=== PATIENT | female | born 1975 | race African-American/Black ===

== ENCOUNTER 2022-12-25 19:00 | Outpatient (REF) | payer OTHER, SELFPAY ==
[2022-12-25 20:12] LABS: ALT 35 U/L (14-59); AST 17 U/L (15-37); Albumin 3.6 g/dL (3.4-5.0); Alkaline Phosphatase 103 U/L (46-116); Anion Gap 8.1 mmol/L (3-11); BUN 9 mg/dL (7-18); Bilirubin, Total 0.3 mg/dL (0.2-1.0); CO2 27.9 mmol/L (21.0-32.0); CREATININE 0.9 mg/dL (0.55-1.02); Calcium 8.8 mg/dL (8.5-10.1); Calculated LDL 54 mg/dL (<100); Chloride 104 mmol/L (98-107); Cholesterol 128 mg/dL (<200); Estimated GFR 79.35 (mL/min/1.73m2); Glucose 216 mg/dL (74-106); HDL Cholesterol 39 mg/dL (40-60); Sodium 140 mmol/L (136-145); Total Protein 7.4 g/dL (6.4-8.2); Triglyceride 179 mg/dL (<150)
== END 2022-12-25 19:01 | disposition home or self-care (01) ==
LOC: NCHCN 19:00
PROVIDERS: Visit Provider Nurse Practitioner Family
DX: R73.03 Prediabetes (principal); I10 Essential (primary) hypertension; E78.5 Hyperlipidemia, unspecified
CPT/HCPCS: 80053; 80061; 83036

== ENCOUNTER → 2023-09-17 02:59 | Outpatient (CLI) | payer OTHER, SELFPAY ==
--- NOTE | 2023-09-17 | DI.MRI_ITS ---
Exam(s) MR LOWER JOINT LT WO EXAM: MR LOWER JOINT LT WO CLINICAL HISTORY: LT HIP PAIN, M25.552,NO IMPROVEMENT WITH PT TECHNIQUE: Multiplanar multisequence MRI of the hip was performed. COMPARISON: No exams were available for comparison FINDINGS: MARROW/JOINTS:There is no evidence of fracture, bone contusion, nor avascular necrosis. There are no significant osseous lesions. Main finding here is advanced osteoarthritic degenerative change of the left hip with full-thickness cartilage loss salt again qjki-mw-idxd appearance and prominent femoral head marginal osteophytes. Th ere is a small hip joint effusion and there are intra-articular bodies evident. These are most eviden t inferiorly. LABRUM: The majority of the labrum appears truncated and irregular in appearance consistent with cullet crusher vanessa diffuse degenerative tearing. There is no paralabral cyst. BURSAE: There is no evidence of trochanteric bursitis. There is no evidence of iliopsoas bursitis. TENDONS: No evidence of tendinitis nor tendon tears. ISCHIAL TUBEROSITY/HAMSTRING: There is no abnormal intraosseous signal in the ipsilateral ischial tub erosity nor tear of the common hamstrings tendon attachment site at this level. OTHER: No evidence of signal abnormality within the surrounding muscles. No abnormal extra-articular fluid collections. IMPRESSION: 1. There is advanced osteoarthritic degenerative change in the left hip as described above and there are also a few loose bodies within a small left hip joint effusion. 2. Multilevel degenerative ipsilateral labral tearing is evident. 3. No evidence of stress fracture, avascular necrosis, nor significant osseous lesions. DATA REPOSITORY:
--- NOTE | 2023-09-17 18:55 | DI.VRAD_ITS ---
PROCEDURE INFORMATION: Exam: MR Left Lower Extremity Joint Without Contrast; Hip Exam date and time: 09/17/2023 1:58 PM Age: 47 years old Clinical indication: Pain; Hip; Bilateral TECHNIQUE: Imaging protocol: Magnetic resonance imaging of the left lower extremity joint without contrast. Exam focused on the hip. COMPARISON: No relevant prior studies available. FINDINGS: Bones/joints: Asymmetrical, moderate to advanced osteoarthritic changes within the left hip with large areas of full-thickness cartilage loss, marginal and ring osteophytes, and a fory-ml-jngq appearance. Numerous small intra-articular bodies are seen within a small left hip effusion, with possible areas of superimposed synovitis. No evidence for acute fracture. However, slight flattening of the left femoral head is seen which could represent sequela of a prior subcortical fracture or osteonecrosis within the left femoral head. A large anterior and lateral acetabular osteophyte is seen which covers the femoral head, and is fragmented laterally. Zunx-hk-vynuerjx osteoarthritic changes within the right hip. Labrum: The labrum is diffusely truncated and irregular in appearance consistent with chronic, diffuse degenerative labral tearing and fraying. No paralabral cyst. TENDONS: Tendons of iliopsoas group: No acute tear or rupture. Tendons of medial compartment of thigh: No acute tear or rupture. Tendons of lateral rotators of hip: No acute tear or rupture. Tendons of gluteal group: No acute tear or rupture. Soft tissues: No focal fluid collection or hematoma within the overlying soft tissues. IMPRESSION: 1. Asymmetrical moderate to advanced osteoarthritis within the left hip, with significant cartilage loss, osteophytes and a zgqi-uu-fxte appearance. Small left hip effusion with multiple small intra-articular bodies and possible synovitis. This may represent sequela of a prior injury or could represent sequela of prior osteonecrosis/AVN within the left femoral head. An inflammatory or crystalline arthropathy is less favored. 2. Zkgr-cs-qhznsizq osteoarthritic changes within the right hip. Dictated and Authenticated by: Cheri Comer MD. Ordering:DORI Sheppard MD
== END ==
PROVIDERS: PCP Nurse Practitioner Family; Visit Provider Nurse Practitioner Family
DX: M16.12 Unilateral primary osteoarthritis, left hip (principal)
CPT/HCPCS: 73721

== ENCOUNTER 2023-09-23 10:01 | Day surgery (SDC) | payer OTHER, SELFPAY ==
[2023-09-23 10:35] VITALS: BP 137/99; PULSE 94; RESP 18; TEMP 36.3; O2SAT 96
[2023-09-23] MEDS: Lactated Ringers 1,000 ML 80 ML IV (10:54)
--- NOTE | 2023-09-23 11:02 | W.ANESPRE ---
General Info Date of Service Date Performed: 09/23/23 Height: 5 ft 5 in Weight: 100 kg Body Mass Index (BMI): 36.6 Surgical Procedure: Operation Date: 09/23/23 12:20 Proposed Procedure Side Surgeon p Sherrie Mixon MD Meds Allergies and Home Medications Allergies Allergy/AdvReac Type Severity Reaction Status Date / Time oxycodone [From Percocet] AdvReac Unknown Verified 09/23/23 10:47 Home Medication Medication Instructions Recorded estradiol 0.045 mg-levonorgestrel 1 patch transdermal QWEEK 07/16/23 0.015 mg/24hr weekly transderm patch (Climara Pro) metoprolol succinate 100 mg 100 mg PO DAILY 07/16/23 tablet,extended release 24 hr pantoprazole 40 mg tablet,delayed 40 mg PO DAILY 07/16/23 release rosuvastatin 10 mg tablet 10 mg PO DAILY 07/16/23 bisacodyl 5 mg tablet,delayed 5 mg PO ONCE Colonoscopy Bowel 08/18/23 release (Dulcolax (bisacodyl)) Prep #4 tabs hydrochlorothiazide 25 mg tablet 50 mg PO DAILY 08/18/23 ketoconazole 2 % shampoo 1 applic topical ONCE PRN 08/18/23 polyethylene glycol 3350 17 238 g PO ONCE Colonoscopy Bowel 08/18/23 gram/dose oral powder Prep #238 grams semaglutide 0.25 mg or 0.5 mg (2 1 mg subcut QWEEK 08/18/23 mg/3 mL) subcutaneous pen injector (Ozempic) Current Visit Medications: Current Medications Generic Name Dose Route Start Last Admin Trade Name Corona PRN Reason Stop Dose Admin Ringer's Solution 1,000 mls @ 80 mls/hr 09/23/23 06:00 09/23/23 10:54 IV 10/22/23 23:59 80 mls/hr INFUSION DAWSON Administration IV Miscellaneous Supplies 1 each 09/23/23 06:00 Iv Access IV 10/22/23 23:59 DIRECTED DAWSON Sodium Chloride 0 ml 09/23/23 06:00 Normal Saline Flush 10 Ml Syr IV 10/22/23 23:59 PRN PRN Sodium Chloride 0 ml 09/23/23 06:00 Normal Saline 10 Ml Vial IJ 10/22/23 23:59 DIRECTED PRN Sterile Water 0 ml 09/23/23 06:00 Water,Injection,Sterile 10 Ml Vial IJ 10/22/23 23:59 DIRECTED PRN PFS Active Problems Active Problems: Problem Status Onset Code Obesity E66.9 Hypertension I10 Prediabetes R73.03 Medical History Medical History Diabetes Arthritis Hyperlipidemia GERD (gastroesophageal reflux disease) History of frequent urinary tract infections Hirsutism Bilateral sciatica Family history of colon cancer in mother Surgical History Surgical History History of hysterectomy Tobacco Smoking/Tobacco Use Status: Never Alcohol Alcohol Intake: never Substance Use Substance use type: does not use Vital Signs and Lab Results Vital Signs Most Recent Vital Signs in EMR: Most Recent Vital Signs Temp Pulse Resp BP Pulse Ox 36.3 C L 94 H 18 137/99 H 96 09/23/23 10:35 09/23/23 10:35 09/23/23 10:35 09/23/23 10:35 09/23/23 10:35 Point of Care Results Point of Care Results: Finger Stick Blood Glucose 151 09/23/23 10:53 Lab Results Blood Type / Crossmatch: No Data to Display Complete Blood Count: No Data to Display Complete Metabolic Panel: No Data to Display Liver Function Panel: No Data to Display Coagulation Panel: No Data to Display Cardiac Panel: No Data to Display Arterial Blood Gas: No Data to Display Venous Blood Gas: No Data to Display Pancreas Panel: No Data to Display Thyroid Panel: No Data to Display Infectious Disease: No Data to Display Blood Cultures: No Data to Display Toxicology Panel: No Data to Display Panel: No Data to Display Anesthesia Assessment and Plan Anesthesia History Personal History: No History of Anesthesia Complications Family History: Family History Unknown Exercise Tolerance Exercise Tolerance: Metabolic Equivalents>4 Pertinent Negatives Pertinent Negatives: No Symptoms of GERD, No Major Cardiovascular Symptoms or Complaints and No Major Pulmonary Symptoms or Complaints Cardiac & Pulmonary Exam Cardiac Exam: Normal S1/S2 Heart Sounds Pulmonary Exam: Clear Bilateral Breath Sounds Implantable Cardiac Device Does patient have a Pacemaker or an ICD?: No Airway Exam Known Difficult Airway: No Mallampati Class: 1 Mouth Opening: Normal (> 3cm) Thyromental Distance: Greater than 3 cm Neck Range of Motion: Full ROM Neck Circumference: Normal Teeth Condition: Normal Dentition ASA Classification ASA Score: ASA 2 Emergency Case?: No NPO Status NPO Status: NPO Clears >2 hours, Solids >8 hours Status Status: History of Hysterectomy Anesthesia Plan Resuscitation Status: Full Code Anesthesia Technique: General Anesthesia Airway Planned: Natural Airway Monitors Used: Standard Monitors Preoperative Comments:: Reports Ozempic dose >14/days prior.
[2023-09-23 11:05] VITALS: BMI 36.6
--- NOTE | 2023-09-23 11:48 | BOWEL_PTH ---
PATIENT: Radha Cruz LOC: [facility] U#:[id number] AGE/SX: 47/F ROOM: RE09/23/[address]: Serafin Mixon : 1975 BED: DIS: 09/23/2023 SPEC #: [id number] RECD: 09/23/23 12:54 STATUS: NAUN REQ #: [id number] KRISTYN: 09/23/23 11:[address]: Serafin Mixon DEPT: Surgical Specimen RECD BY: Danielle Orourke ENTERED: 09/23/23 12:54 SP TYPE: Bowel OTHR DR: JEREMY WANG Tissues: 1 - BIOPSY BOWEL 2 - BIOPSY BOWEL 3 - BIOPSY BOWEL Procedures: GROSS AND MICRO LEVEL 4 Comments: [id number]
[2023-09-23 12:03] VITALS: BP 119/92; PULSE 89; RESP 18; TEMP 36.1; O2SAT 96
--- NOTE | 2023-09-23 12:06 | COLE_ITS ---
Date of service: 09/23/23 Time of Service: 12:06 Colonoscopy Report Procedure Description: PROCEDURES PERFORMED: 1. Colonoscopy with hot snare polypectomy x2 2. Cold forceps biopsy PREOPERATIVE DIAGNOSIS: Surveillance colonoscopy POSTOPERATIVE DIAGNOSIS: Colon polyps, lipoma, mild diverticulosis SURGEON: León Mixon MD INDICATION for procedure: The patient is a 47-year-old woman with a family history of colon cancer in her mother. Her prior colonoscopy was reportedly normal. FINDINGS: The terminal ileum was normal. In the ascending colon a 5-7 mm sessile polyp was removed with hot snare technique. Further along in the transverse colon a 3-5 mm sessile polyp was removed with hot snare technique. In the descending colon/sigmoid colon at about 40 cm is a moderate?sized lipoma(clinically). This does not appear to be a polyp and appears to be submucosal. It encompasses about one third of the colon wall. I took full- thickness biopsies of it with a cold forceps in hopes to prove benign tissue. My only concern looking at it is the possibility that it could create an obstructive, ball?valve effect if it continues to grow. If she were to ever have bloating or abdominal discomfort, this is a possible disease entity to consider. Again, it appears completely benign. Minimal/mild diverticular changes are present in the sigmoid colon. SURVEILLANCE interval/FOLLOW-UP: 3 years because of the family history and the findings today. SPECIMENS: yes EBL: Minimal COMPLICATIONS: None QUALITY of prep: Excellent Procedure in detail: The patient gave written consent and was in agreement with the indications, the potential risks as well as the benefits of the procedure. They taken to the endoscopy suite and laid in the left lateral decubitus position. A timeout was performed and anesthesia was administered which was tolerated well. I started the procedure. Digital rectal and visual examination was performed and grossly within normal limits. A well-lubricated flexible colonoscope was then introduced and passed without any notable difficulty all the way to the cecum identified by the ileocecal valve and the appendiceal orifice. The terminal ileum was intubated and looked normal. The scope was then slowly withdrawn with the above-noted findings. The patient tolerated the procedure well and was taken to the PACU in hemodynamically stable condition.
--- NOTE | 2023-09-23 12:09 | W.PM.DSUDISC ---
Date of service: 09/23/23 Time of Service: 12:09 Discharge Plan Disposition Patient Disposition: Home Condition: Good Discharge Details Attending Provider: Serafin Mixon Primary Care Provider: Laurie Banks Home Meds and New Rx's Prescriptions: No Action bisacodyl [Dulcolax (bisacodyl)] 5 mg tablet,delayed release (DR/EC) 5 mg PO ONCE Qty: 4 0RF Rx Instructions: Colonoscopy Bowel Prep- Per Instructions polyethylene glycol 3350 17 gram/dose powder 238 g PO ONCE Qty: 238 0RF Rx Instructions: Colonoscopy Bowel Prep- Per Instructions metoprolol succinate 100 mg tablet extended release 24 hr 100 mg PO DAILY Climara Pro 0.045-0.015 mg/24 hr patch weekly 1 patch transdermal QWEEK rosuvastatin 10 mg tablet 10 mg PO DAILY pantoprazole 40 mg tablet,delayed release (DR/EC) 40 mg PO DAILY hydrochlorothiazide 25 mg tablet 50 mg PO DAILY ketoconazole 2 % shampoo 1 applic topical ONCE PRN Ozempic 0.25 mg or 0.5 mg (2 mg/3 mL) pen injector 1 mg subcut QWEEK Discharge Instructions Additional Instructions: FINDINGS: Some polyps were found today and removed. This is why we do the colonoscopies. This is nothing to worry about. Because of your mother history, you should do another colonoscopy in 3 years. Separately, a lipoma was found in your colon. This is a benign problem, but it is somewhat large. If you were to ever develop abdominal pain or bloating or inability to go to the bathroom, in theory this needs to be considered. That will probably not happen. At your next colonoscopy, in 3 years, it can be assessed whether or not this is continuing to grow or just staying the same size. Activity:: Activity as Tolerated Diet:: As Tolerated
[2023-09-23 12:30] VITALS: BP 123/94; PULSE 84; RESP 18; TEMP 36.1; O2SAT 100
--- NOTE | 2023-09-23 13:06 | W.ANESPOSTOP ---
Postoperative Evaluation Date, Time and Location Date Performed: 09/23/23 Time Performed: 13:06 Patient Location: Day Surgery Unit Vital Signs Most Recent Imported Vital Signs: Most Recent Vital Signs Temp Pulse Resp BP Pulse Ox 36.1 C L 84 18 123/94 H 100 09/23/23 12:30 09/23/23 12:30 09/23/23 12:30 09/23/23 12:30 09/23/23 12:30 Pain Score Most Recent Pain Score: Most Recent Pain Score Pain Level 0 09/23/23 12:30 Assessment Mental Status: Awake (Alert & Oriented to Patient Baseline) Airway and Respiratory Function: Patent airway with normal (patient baseline) respiratory exam Cardiovascular Function: Hemodynamically Stable Hydration Status: Adequately Hydrated Nausea & Vomiting: No Nausea or Vomiting Pain: Pt. Denies Any Pain Peripheral Nerve Block: Patient did not receive a nerve block
== END 2023-09-23 13:11 | disposition home or self-care (01) ==
PROVIDERS: PCP Nurse Practitioner Family; Visit Provider Student in an Organized Health Care Education/Training Program
PROC: 0DJD8ZZ Inspection of Lower Intestinal Tract, Via Natural or Artificial Opening Endoscopic (ICD-10-PCS; CPT 45378; principal; 2023-09-23 12:15)
DX: Z12.11 Encounter for screening for malignant neoplasm of colon (principal); D12.2 Benign neoplasm of ascending colon; K57.30 Diverticulosis of large intestine without perforation or abscess without bleeding; D17.39 Benign lipomatous neoplasm of skin and subcutaneous tissue of other sites; Z80.0 Family history of malignant neoplasm of digestive organs; I10 Essential (primary) hypertension; D12.3 Benign neoplasm of transverse colon; D12.5 Benign neoplasm of sigmoid colon
CPT/HCPCS: 45385; 123; 88305; 00123; J2001; J2704

== ENCOUNTER 2023-12-25 03:21 | Outpatient (CLI) | payer OTHER, SELFPAY ==
--- NOTE | 2023-12-25 10:57 | W.NUTRFU ---
Date of service: 12/25/23 Time of Service: 10:00 Nutrition Note NOTE: Per Radha's initial request, this appointment was completed via phone call. I did send Radha an email with my contact info in it should she have any need for continued appts, resources or assistance with meal planning after this appointment. The referral was received almost a year ago but was lost due to change of staff and unaware until recently of a referral process change. Radha referred for Diabetes education with a diagnosis of DMII with hyperglycemia. Medical history also includes hx of total hysterectomy, HTN, Sciatica, Hirsutism, Frequent UTI's, Obesity with current BMI 39, GERD, HLD, and arthritis (pt complains of hip pain lately). She works remotely at home, which she agrees can be a mixed blessing in regards to her nutrittion goals. Current empty-guera with just at home for meals. No scheduled exercise at this time. She tends to have just 2 meals per day currently after starting ozempic and feeling less appetite/earlier satiety. follows pescatarian diet and eats eggs and some dairy - mostly cheese. Diet recall over phone tends to be low in fiber, high in added sugar (drinks soda, ice tea, lemonade) and 2 meals per day makes it difficult to plan to meet all her nutrition needs - takes no vitamin supplements currently. A1c was 8.0% in december 2022. Estimated energy needs: 2200kcals (REEx1.3AF) - suggested ~5690-4463 for steady wt loss. Suggested ~40%kcals from carbs at 150-180grams or max of 12 carb servings for the day. 90-135g protein (20-30% of recommended kcals) REviewed goals to limit added sugar to <40g per day and easiest way is to address sweetened beverages. Encouraged scheduled activity and highlighted strength training. Encouraged looking at sleep quality and stress mgt as components to her success with wt mgt and glucose mgt. Encouraged MVI with iron and iodine in it and 4,000IU vitamin D for a month and then consistently take 2,000IU per day.Encouraged to work up to consistently get 30g fiber daily. we discussed how to do these things with with meal planning for somewhat consistent meals and trying to get on autopilot to reduce stress about meal planning variety. pt has my conact info should she have furhter needs or questions. Time Spent in Nutritional Counseling and Treatment: 30 minutes
== END 2023-12-25 03:22 | disposition home or self-care (01) ==
LOC: DS 03:21
PROVIDERS: PCP Nurse Practitioner Family; Visit Provider Dietitian, Registered
DX: E11.65 Type 2 diabetes mellitus with hyperglycemia (principal)
CPT/HCPCS: 00123; 97802

== ENCOUNTER 2023-12-30 16:18 | Outpatient (REF) | payer OTHER, SELFPAY ==
[2023-12-30 20:06] LABS: ALT 33 U/L (14-59); AST 14 U/L (15-37); Albumin 3.8 g/dL (3.4-5.0); Alkaline Phosphatase 95 U/L (46-116); Anion Gap 8.6 mmol/L (3-11); BUN 11 mg/dL (7-18); Bilirubin, Total 0.5 mg/dL (0.2-1.0); CO2 30.4 mmol/L (21.0-32.0); CREATININE 0.8 mg/dL (0.55-1.02); Calcium 9.1 mg/dL (8.5-10.1); Chloride 105 mmol/L (98-107); Estimated GFR 90.83 (mL/min/1.73m2); Glucose 94 mg/dL (74-106); Potassium 3.8 mmol/L (3.5-5.1); Sodium 144 mmol/L (136-145); TSH (W/Ref FT4) 1.92 uIU/mL (0.36-3.74); Total Protein 7.2 g/dL (6.4-8.2)
[2023-12-30 20:11] LABS: Hemoglobin A1C 6.6 % (<5.7)
[2023-12-31 19:17] LABS: Vitamin D 25 Total 25.5 ng/mL (30-100)
== END 2023-12-30 16:19 | disposition home or self-care (01) ==
LOC: NCHCN 16:18
PROVIDERS: PCP Nurse Practitioner Family; Visit Provider Nurse Practitioner Family
DX: I10 Essential (primary) hypertension (principal); E55.9 Vitamin D deficiency, unspecified
CPT/HCPCS: 80053; 82306; 83036; 84443

== ENCOUNTER 2024-06-03 02:34 | Outpatient (CLI) | payer OTHER, SELFPAY ==
--- OUTSIDE RECORDS SUMMARY | 2024-06-03 03:10 | XMS_ITS | Encounter Summary ---
Author Organization [facility] Address [facility] [place] [address] Care Team Providers Care Quilter Fixer Name Role Phone Laurie Banks APRN Primary Care Provider [phone] Encounter Details Date Type Department Care Team (Late st Contact Info) Description 02/20/2023 7:43 AM EDT - 02/20/2023 11:59 PM EDT Hospital [place] [address] Kallie Linares MD [facility] [place] [address] Abnormal finding on breast imaging Discharge Disposition: Home Social History Tobacco Use Types Packs/Day Years Used Date Smoking Tobacco: Never Assessed Sex and Gender Information Value Date Recorded Sex Assigned at Female 02/04/2023 9:52 AM EDT Gender Identity Female 02/04/2023 9:52 AM EDT Sexual Orientation Straight 02/04/2023 9: 52 AM EDT documented as of this encounter Plan of Treatment Not on file documented as of this encounter Procedures Procedure Name Priority Date/Time Associated Diagnosis Comments MAMMO BREAST US LIMITED LEFT Routine 02/20/2023 9:00 AM EDT Abnormal finding on breast imaging documented in this encounter Results * US Breast Limited Left (02/20/2023 9:00 AM EDT) Anatomical Region Laterality Modality Breast Left Mammography Impressions 02/20/2023 11:01 AM EDT 0.8 cm possibly fat-containing mass in the upper outer quadrant, likely present on prior and benign. FINAL ASSESSMENT: LEFT BREAST: BI-RADS Category 3: Probably Benign Finding. Short interval follow-up RECOMMENDATION: Follow-up mammogram in 6 months to be scheduled by the breast imaging department. I have personally reviewed the image(s) and the resident's interpretation and agree with the findings, Jose Liu MD at 02/20/2023 11:01 AM Thank you for letting us participate in the care of this patient. ??If you are a health care provider and have any questions regarding this report, please contact the number below. ??For patients who have questions please contact the health health care marketing specialist that requested your imaging first. ? Narrative 02/20/2023 11:01 AM EDT EXAMINATION: MAMMO CALL BACK DIAGNOSTIC [facility] WITHOUT CAD LEFT, US ??BREAST LIMITED LEFT CLINICAL HISTORY: abnormal finding on breast imaging. ??New mass in the left breast TECHNIQUE AND VIEWS OBTAINED: CC and MLO views were obtained of the LEFT breast. 2D and 3D tomosynthesis images were obtained. Computer aided detection was used. Ultrasound was performed of the upper outer quadrant. COMPARISON: Prior mammograms 07/11/2022 BREAST DENSITY: There are scattered areas of fibroglandular density. FINDINGS: LEFT BREAST MAMMOGRAM: Approximately 0.8 cm mass in the left upper outer breast at the 2:00 position. In retrospect, this mass may correspond with a 0.7 cm fat-containing lesion present on outside prior mammogram of 07/11/2020. LEFT BREAST ULTRASOUND: No ultraound abnormality was found in the area of concern. DIAGNOSTIC SUMMARY: LEFT BREAST LESION #1 0.8 cm Mass ??Upper Outer Quadrant 2 OClock 11 cm from the nipple. Kallie Linares MD IMG MAMMO ORDERABLE S documented in this encounter Visit Diagnoses Diagnosis Abnormal finding on breast imaging Other (abnormal) findings on radiological examination of breast documented in this encounter Care Teams Quilter Fixer Relationship Specialty Start Date End Date Laurie Banks, AUTOMOTIVE DIAGNOSTIC TECHNICIAN [address] [place] [address] PCP - General Family Medicine 12/26/22 documented as of this encounter
--- OUTSIDE RECORDS SUMMARY | 2024-06-03 03:10 | XMS_ITS | Continuity of Care Document ---
Author Organization [facility] Address [address] [place] [address] Encounter NCTY_DE Date(s): 12/08/22 - 12/08/22 [facility] [address] [place] [address] [place] Encounter Diagnosis Upper respiratory infection(Discharge Diagnosis) - 12/08/22 Discharge Disposition: Home or Self Care Attending Physician: Isaac Soriano MD Admitting Physician: Isaac Soriano MD Allergies, Adverse Reactions, Alerts Substance Reaction Severity Status Percocet Vomit Moderate Active Functional Status 12/08/22 Family Member Travel History No recent t ravel Recent Travel History No recent travel Other exposure to Infectious Disease Exp osure to respiratory illness of unknown etiology Medications naproxen 500 mg oral tablet 500 mg = 1 tab, Oral, every 12 hr, X 10 days, # 20 tab, 0 Refill(s), 12/18/22 5:06:00 EDT, Pharmacy: [facility], 165, cm, 12/08/22 3:16:00 EDT, Height/Length Dosing, 100, kg, 12/08/22 3:16:00 EDT, Weight Dosing Start Date: 12/08/22 Stop Date: 12/18/22 Status: Ordered Tessalon Perles 100 mg oral capsule 200 mg = 2 cap, Oral, TID, PRN as needed for cough, X 7 days, # 42 cap, 0 Refill(s), 12/15/22 5:06:00 EDT, [email or web address], 165, cm, 12/08/22 3:16:00 EDT, Height/Length Dosing, 100, kg, 12/08/22 3:16:00 EDT, Weight Dosing Start Date: 12/08/22 Stop Date: 12/15/22 Status: Ordered Results Laboratory List Name Date SARS-CoV-2 (COVID-19)/Flu/RSV (GeneXpert ) 12/08/22 Most recent to oldest [Reference Range]: 1 Employed in healthcare? No *NA* (12/08/22 3:30 AM) Symptomatic as defined by CDC? Yes *NA* (12/08/22 3:30 AM) Date of onset (Lab) 04-DEC-2022 *Unknown* (12/08/22 3:30 AM) Hospitalized due to COVID-19? No *NA* (12/08/22 3:30 AM) In ICU? No *NA* (12/08/22 3:30 AM) Group care resident? No *NA* (12/08/22 3:30 AM) status? Unknown *NA* (12/08/22 3:30 AM) SARS-CoV-2(Covid19)PCR(GXpert COVFLURSV) [Negative] Negative (12/08/22 3:30 AM) Flu A (GXpert COVFLURSV) [Negative] Nega tive (12/08/22 3:30 AM) RSV (GXpert COVFLURSV) [Negative] Negati ve (12/08/22 3:30 AM) Flu B (GXpert COVFLURSV) [Negative] Nega tive (12/08/22 3:30 AM) Vital Signs Most recent to oldest [Reference Range]: 1 Temperature Temporal Artery [36-38 Deg C ] 37.2 Deg C (12/08/22 3:08 AM) Peripheral Pulse Rate [60-100 bpm] 101 b pm *HI* (12/08/22 3:08 AM) Respiratory Rate [12-24 br/min] 20 br/mi n (12/08/22 3:08 AM) Blood Pressure [90-140/60-90 mmHg] 168/1 09mmHg *HI* (12/08/22 3:08 AM) Weight Dosing 100.00 kg (12/08/22 3:16 AM) Weight Estimated 100.00 kg (12/08/22 3:08 AM) Height/Length Dosing 165.000 cm (12/08/22 3:16 AM) Height/Length Estimated 165.000 cm (12/08/22 3:08 AM) Social History Social History Type Response Tobacco Never tobacco user T obacco Use:. Sex Hospital Discharge Instructions Patient Education 12/08/2022 04:04:57 Cough, Adult Cough, Adult Coughing is a reflex that clears your throat and your airways (respiratory system). Coughing helps to heal and protect your lungs. It is normal to cough occasionally, but a cough that happens with other symptoms or lasts a long time may be a sign of a condition that needs treatment. An acute cough may only last 2???3 weeks, while a chronic cough may last 8 or more weeks. Coughing is commonly caused by: ??? Infection of the respiratory systemby viruses or bacteria. ??? Breathing in substances that irritate your lungs. ??? Allergies. ??? Asthma. ??? Mucus that runs down the back of your throat (postnasal drip). ??? Smoking. ??? Acid backing up from the stomach into the esophagus (gastroesophageal reflux). ??? Certain medicines. ??? Chronic lung problems. ??? Other medical conditions such as heart failure or a blood clot in the lung (pulmonary embolism). Follow these instructions at home: Medicines ??? Take svve-paf-urjfudz and prescription medicines only as told by your health care provider. ??? Talk with your health care provider before you take a cough suppressant medicine. Lifestyle ??? Avoid cigarette smoke. Do not use any products that contain nicotine or tobacco, such as cigarettes, e-cigarettes, and chewing tobacco. If you need help quitting, ask your health care provider. ??? Drink enough fluid to keep your urine pale yellow. ??? Avoid caffeine. ??? Do not drink alcohol if your health care provider tells you not to drink. General instructions ??? Pay close attention to changes in your cough. Tell your health care provider about them. ??? Always cover your mouth when you cough. ??? Avoid things that make you cough, such as perfume, candles, cleaning products, or campfire or tobacco smoke. ??? If the air is dry, use a cool mist vaporizer or humidifier in your bedroom or your home to helploosen secretions. ??? If your cough is worse at night, try to sleep in a semi-upright position. ??? Rest as needed. ??? Keep all follow-up visits as told by your health care provider. This is important. Contact a health care provider if you: ??? Have new symptoms. ??? Cough up pus. ??? Have a cough that does not get better after 2???3 weeks or gets worse. ??? Cannot control your cough with cough suppressant medicines and you are losing sleep. ??? Have pain that gets worse or pain that is not helped with medicine. ??? Have a fever. ??? Have unexplained weight loss. ??? Have night sweats. Get help right away if: ??? You cough up blood. ??? You have difficulty breathing. ??? Your heartbeat is very fast. These symptoms may represent a serious problem that is an emergency. Do not wait to see if the symptoms will go away. Get medical help right away. Call your local emergency services (911 in the [place] Do not drive yourself to the hospital. Summary ??? Coughing is a reflex that clears your throat and your airways. It is normal to cough occasionally, but a cough that happens with other symptoms or lasts a long time may be a sign of a condition that needs treatment. ??? Take kqgi-csi-oqdqyst and prescription medicines only as told by your health care provider. ??? Always cover your mouth when you cough. ??? Contact a health care provider if you have new symptoms or a cough that does not get better after 2???3 weeks or gets worse. This information is not intended to replace advice given to you by your health care provider. Make sure you discuss any questions you have with your health care provider. Document Revised: 09/12/2019 Document Reviewed: 09/12/2019 [employer] Patient Education ?? 2021 [employer]. Follow Up Care 12/08/2022 03:08:43 With:Follow up with primary care provider Address: When:1 week Comments:If needed Emergency department Discharge instructions * Isaac Soriano MD: PERFORM Event Display: ED Discharge Information Authored Date: [id number] NINO RUSSELL :1975 Age:47 years Sex:Female Visit Date:12/08/2022 Discharge Instructions We would like to thank you for allowing us to assist you with your healthcare needs. The following includes patient education materials and information regarding your injury/illness. Diagnosis from Today's Visit Upper respiratory infection Discharge Vitals Temperature??(Temporal Artery) 99.0 ??F (37.2 ??C) Heart Rate??(Peripheral) 101 Respiratory Rate?? 20 Blood Pressure?? 168/109?? Height?? 64.96 in (165.000 cm) Weight??(Estimated) 220.50 lb (100.00 kg) Allergies Percocet??(Vomit) What to Do Next Instructions from Your Care Team Thank you for coming to the emergency department today, it has been our pleasure to take care of you. ??Your chest x-ray thankfully did not show signs of pneumonia, your COVID/flu/RSV swab was negative.?? Would recommend continuing with an anti-inflammatory medication such as either ibuprofen or Aleve??in conjunction with Tylenol.?? The Afrin/oxymetazoline spray??is useful for decongestion of your nose and sinuses but we recommend??limiting use to 3 total days??so that you do not get rebound congestion??when you stop using it.?? You may use the prescribed Tessalon Perles to help with cough aswell.?? Please follow-up with your regular doctor within the next week or so if you are having any??persistent symptoms and return to the??emergency department if you have any new or concerning symptoms??including any??new chest pain, trouble breathing, persistent fever,??or if you have any other symptoms or concerns. You Need to Schedule the Following Appointments Follow Up with??Follow up with primary care provider When:??Within 1 week Why: If needed You were treated today on an emergency basis; it may be hutchison to contact your primary care provider to notify them of your visit today. You may have been referred to your regular doctor or a specialist, please follow up as instructed. If your condition worsens or you can't get in to see the doctor, contact the Emergency Department. Medications What How Much When Why Instructions Next Dose New benzonatate (Tessalon Perles 100 mg oral capsule) 2 Capsules Oral (given by mouth) 3 times a day as needed for as needed for cough Upper respiratory infection Duration: 7 Days Pickup at [facility] New naproxen (naproxen 500 mg oral tablet) 1 tab Oral (given by mouth) Every 12 hours Upper respiratory infection Duration: 10 Days Pickup at [facility] 4[facility] Pharmacy Information [facility] 4156: [address] [place], [place] [id number] [phone] Education Materials Cough, Adult Coughing is a reflex that clears your throat and your airways (respiratory system). Coughing helps to heal and protect your lungs. It is normal to cough occasionally, but a cough that happens with other symptoms or lasts a long time may be a sign of a condition that needs treatment. An acute cough may only last 2???3 weeks, while a chronic cough may last 8 or more weeks. Coughing is commonly caused by: ? Infection of the respiratory systemby viruses or bacteria. ? Breathing in substances that irritate your lungs. ? Allergies. ? Asthma. ? Mucus that runs down the back of your throat (postnasal drip). ? Smoking. ? Acid backing up from the stomach into the esophagus (gastroesophageal reflux). ? Certain medicines. ? Chronic lung problems. ? Other medical conditions such as heart failure or a blood clot in the lung (pulmonary embolism). Follow these instructions at home: Medicines ? Take lysw-kkr-jnsdxur and prescription medicines only as told by your health care provider. ? Talk with your health care provider before you take a cough suppressant medicine. Lifestyle ? Avoid cigarette smoke. Do not use any products that contain nicotine or tobacco, such as cigarettes, e-cigarettes, and chewing tobacco. If you need help quitting, ask your health care provider. ? Drink enough fluid to keep your urine pale yellow. ? Avoid caffeine. ? Do not drink alcohol if your health care provider tells you not to drink. General instructions ? Pay close attention to changes in your cough. Tell your health care provider about them. ? Always cover your mouth when you cough. ? Avoid things that make you cough, such as perfume, candles, cleaning products, or campfire or tobacco smoke. ? If the air is dry, use a cool mist vaporizer or humidifier in your bedroom or your home to help loosen secretions. ? If your cough is worse at night, try to sleep in a semi-upright position. ? Rest as needed. ? Keep all follow-up visits as told by your health care provider. This is important. Contact a health care provider if you: ? Have new symptoms. ? Cough up pus. ? Have a cough that does not get better after 2???3 weeks or gets worse. ? Cannot control your cough with cough suppressant medicines and you are losing sleep. ? Have pain that gets worse or pain that is not helped with medicine. ? Have a fever. ? Have unexplained weight loss. ? Have night sweats. Get help right away if: ? You cough up blood. ? You have difficulty breathing. ? Your heartbeat is very fast. These symptoms may represent a serious problem that is an emergency. Do not wait to see if the symptoms will go away. Get medical help right away. Call your local emergency services (911 in the [place] Do not drive yourself to the hospital. Summary ? Coughing is a reflex that clears your throat and your airways. It is normal to cough occasionally, but a cough that happens with other symptoms or lasts a long time may be a sign of a condition that needs treatment. ? Take ihkh-qkv-ozcjhwz and prescription medicines only as told by your health care provider. ? Always cover your mouth when you cough. ? Contact a health care provider if you have new symptoms or a cough that does not get better after 2???3 weeks or gets worse. This information is not intended to replace advice given to you by your health care provider. Make sure you discuss any questions you have with your health care provider. Document Revised: 09/12/2019 Document Reviewed: 09/12/2019 [employer] Patient Education ?? 2021 [employer] Tests Performed Medications and Immunizations Administered Given naproxen, 500 mg, Oral oxymetazoline 0.05% nasal spray, 15 mL, Nasal Tessalon Perles, 200 mg, Oral Lab Test Name Test Result Date/Time Employed in healthcare? No 12/08/2022 03:30 EDT Symptomatic as defined by CDC? Yes 12/08/2022 03:30 EDT Date of onset (Lab) 12/05/2022 12/08/2022 03:30 EDT Hospitalized due to COVID-19? No 12/08/2022 03:30 EDT In ICU? No 12/08/2022 03:30 EDT Group care resident? No 12/08/2022 03:30 EDT status? Unknown 12/08/2022 03:30 EDT SARS-CoV-2(Covid19)PCR(GXpert COVFLURSV) NEGATIVE 12/08/2022 03:30 EDT Flu A (GXpert COVFLURSV) NEGATIVE 12/08/2022 03:30 EDT Flu B (GXpert COVFLURSV) Neg-GeneXPert 12/08/2022 03:30 EDT RSV (GXpert COVFLURSV) Neg-GeneXPert 12/08/2022 03:30 EDT Patient/Pumping Plant Operator Signature Patient Name:NINO RUSSELL I have received this information and my questions have been answered. Patient/Pumping Plant Operator Name: Patient/Pumping Plant Operator Signature: Relationship to Patient: Witness Name/Signature: Date: Electronically Signed on: 12/08/2022 05:08 EDTSigned by:KELLY Emergency department Note * Melva England H: PERFORM Event Display: ED Notes Authored Date: [id number] Patient Care team information Care Team Personnel Name: Isaac Soriano MD Position: Physician Member Role: Admitting Physician Address: Address: [address] [place] [address] [address] [place] [address] Name: Chrsitophe Hernandez Position: Nurse Member Role: ED Nurse
--- OUTSIDE RECORDS SUMMARY | 2024-06-03 03:10 | XMS_ITS | Encounter Summary ---
[facility] [place] [address] Care Team Providers Care Supervisor Real Estate Office Name Role Phone Laurie Banks APRN Primary Care Provider [phone] Encounter Details Date Type Department Care Team (Latest Contact Info) Description 02/13/2023 Travel Social History Tobacco Use Types Packs/Day Years Used Date Smoking Tobacco: Never Assessed Sex and Gender Information Value Date Recorded Sex Assigned at Female 02/04/2023 9:52 AM EDT Gender Identity Female 02/04/2023 9:52 AM EDT Sexual Orientation Straight 02/04/2023 9: 52 AM EDT documented as of this encounter Plan of Treatment Not on file documented as of this encounter Visit Diagnoses Not on filedocumented in this encounter Care Teams Supervisor Real Estate Office Relationship Specialty Start Date End Date Laurie [place] [address] PCP - General Family Medicine 12/26/22 documented as of this encounter
--- OUTSIDE RECORDS SUMMARY | 2024-06-03 03:10 | XMS_ITS | Encounter Summary ---
Author Organization [facility] Address [facility] [place] [address] Care Team Providers Care Glass Inserter Name Role Phone Laurie Banks APRN Primary Care Provider [phone] Encounter Details Date Type Department Care Team (Late st Contact Info) Description 02/20/2023 7:43 AM EDT - 02/20/2023 11:59 PM EDT Hospital [place] [address] Kallie Linares MD [facility] [address] DIAGNOST[place] [address] Abnormal finding on breast imaging Discharge Disposition: [...] Name Priority Date/Time Associated Diagnosis Comments MAMMO CALL BACK DIAGNOSTIC BRIAN WITHOUT CAD LEFT Routine 02/20/2023 8:30 AM EDT Abnormal finding on breast imaging documented in this encounter Results * Mammo Call Back Diagnostic Brian Without Cad Left (02/20/2023 8:30 AM EDT) Anatomical Region Laterality Modality Breast [...] who have questions please contact the health client care consultant that requested your imaging first. ? Narrative 02/20/2023 11:01 AM EDT EXAMINATION: MAMMO CALL BACK DIAGNOSTIC BRIAN WITHOUT CAD LEFT, US ??BREAST LIMITED LEFT [...] breast documented in this encounter Care Teams Glass Inserter Relationship Specialty Start Date End Date Laurie Banks, COSMETICS COUNTER MANAGER [address] [place] [address] PCP - General Family Medicine 12/26/22 documented as of this encounter
--- OUTSIDE RECORDS SUMMARY | 2024-06-03 03:10 | XMS_ITS | Encounter Summary ---
Author Organization [facility] [place] [address] Care Team Providers Care Machine Hoop Maker Name Role Phone Unavailable Primary Care Provider Unavailabl e Encounter Details Date Type Department Care Team (Late st Contact Info) Description 02/20/2016 Ancillary Procedure Radiology Library at [facility] [place] [address] Laurie Banks APRN [address] [place] [address] [id number] Social History Tobacco Use Types Packs/Day Years [...] Procedure Name Priority Date/Time Associated Diagnosis Comments FILM LIBRARY STORAGE ONLY MAMMO Routine 02/20/2016 12:00 AM EDT documented in this encounter Results * Film Library- Storage Only Mammo (02/20/2016 12:00 AM EDT) Narrative SAHIL - 02/28/2023 2:38 PM EDT This exam is auto-finalizing. It's purpose is for storage only. Laurie BORREGO FILM LIBRARY ORD ERABLES LUCA Smith documented in this encounter Visit Diagnoses Not on filedocumented in this encounter
--- OUTSIDE RECORDS SUMMARY | 2024-06-03 03:10 | XMS_ITS | Clinical Summary ---
Author Organization [facility] [place] [address] Care Team Providers Care Developer Advisor Name Role Phone Laurie Banks APRN Primary Care Provider [phone] Encounters Date Type Department Care Team Description 03/14/2024 1:20 PM EDT - 03/14/2024 11:59 PM EDT Hospital En[place] [id number] Carlotta Martinez MD Abnormal finding on breast imaging Discharge Disposition: Home 03/14/2024 Travel from Last 3 Months Family History Medical History Relation Comments No Known Problems Daughter No Known Problems Father No Known Problems Maternal Aunt No Known Problems Maternal Grandfather No Known Problems Maternal Grandmother No Known Problems Maternal Uncle No Known Problems Mother No Known Problems Other No Known Problems Paternal Aunt No Known Problems Paternal Grandfather Breast Cancer Paternal Grandmother No Known Problems Paternal Uncle No Known Problems Sister Cancer Neg Hx Colorectal Cancer Neg Hx Krys Syndrome Neg Hx LEAH Usage Neg Hx Endometrial Cancer Neg Hx Hereditary Breast and Ovarian Cancer Syndrome Ne g Hx Li-Fraumeni Syndrome Neg Hx Ovarian Cancer Neg Hx Relation Status Comments Daughter Father Maternal Aunt Maternal Grandfather Maternal Grandmother Maternal Uncle Mother Other Paternal Aunt Paternal Grandfather Paternal Grandmother Paternal Uncle Sister Social History Tobacco Use Types Packs/Day Years Used Date Smoking Tobacco: Never Assessed Sex and Gender Information Value Date Recorded Sex Assigned at Female 02/04/2023 9:52 AM EDT Gender Identity Female 02/04/2023 9:52 AM EDT Sexual Orientation Straight 02/04/2023 9: 52 AM EDT Plan of Treatment Health Maintenance Due Date Last Done Comments CT Colonography 1975 Colonoscopy 1975 Colorectal Cancer Screening 1975 FIT DNA 1975 FIT 1975 Sigmoidoscopy (10 year) with FIT yearly 1975 Sigmoidoscopy 1975 HIV screen 11/20/1993 Hepatitis C Screening 11/20/1993 Hepatitis B vaccine (0-59 yrs) (1) 11/20/1994 Tetanus/Diphtheria/Pertussis Vaccines (1 - Tdap) 11/20/1994 HPV test 11/20/2005 PAP Smear 11/20/2005 Breast Cancer Share Decision Needed 2015 Covid-19 Vaccine (1 - 2022-24 season) 2024 Influenza (Flu) vaccine (1 o f 1 - Influenza standard series) 05/08/2024 Breast Cancer screening 03/14/2026 03/14/2024, 02/11 Procedures Procedure Name Priority Date/Time Associated Diagnosis Comments MAMMO DIAGNOSTIC CAD AND ALEA BILATERAL Routine 03/14/2024 2:44 PM EDT Abnormal finding on breast imaging from Last 3 Months Results * Mammo Diagnostic CAD and Alea Bilateral (03/14/2024 2:44 PM EDT) WORKSTATION ID [id number] 1 DH RAD Anatomical Region Laterality Modality Breast Bilateral Mammography Impressions 03/14/2024 4:59 PM EDT No mammographic evidence of malignancy. MANAGEMENT: Annual screening mammography. FINAL ASSESSMENT: BI-RADS Category 2: Benign * ??Regular screening mammograms starting at age 40 reduce the risk of from breast cancer. * ??Individuals should discuss the risks and benefits with their provider to determine their preferred breast cancer screening schedule, and at what age screening should stop. * ??Individuals should report any breast changes to a health care provider right away. * ??Some Individuals, because of their family history, a genetic tendency, or other factors, should consider being screened with annual breast MRI as well as with mammograms. * ??Screening mammography may not detect 10-15% of?breast cancers. I have personally reviewed the image(s) and the resident's interpretation and agree with the findings, Kayley Peña MD at 03/14/2024 4:59 PM Thank you for letting us participate in the care of this patient. ??If you are a health care provider and have any questions regarding this report, please contact the number below. ??For patients who have questions please contact the health care trainer that requested your imaging first. ? Narrative 03/14/2024 4:59 PM EDT EXAMINATION: MAMMO DIAGNOSTIC CAD AND ALEA BILATERAL CLINICAL HISTORY: abnormal finding on breast imaging TECHNIQUE AND VIEWS OBTAINED: CC and MLO views were obtained of BOTH breasts. 2D and 3D tomosynthesis images were obtained. Computer aided detection was used. COMPARISON: Prior images BREAST DENSITY: There are scattered areas of fibroglandular density. FINDINGS: Right breast: Waxing and waning circumscribed high density masses consistent with cysts when compared to prior studies and given the prior history and ultrasound findings of breast cysts. Left breast: The previously described mass in the posterior left breast, 2:00 radian, has resolved. No suspicious calcifications or areas of distortion. Carlotta Martinez MD IMG MAMMO ORDERAB LES from Last 3 Months Care Teams Developer Advisor Relationship Specialty Start Date End Date Laurie Banks, R[place]NY [address] [place] [address] PCP - General Family Medicine 12/26/22
--- OUTSIDE RECORDS SUMMARY | 2024-06-03 03:10 | XMS_ITS | Encounter Summary ---
Author Organization [facility] [place] [address] Care Team Providers Care Dip Tanker Name Role Phone Laurie Banks APRN Primary Care Provider [phone] Encounter Details Date Type Department Care Team (Latest Contact Info) Description 03/14/2024 Travel Social History Tobacco Use Types Packs/Day [...] on filedocumented in this encounter Care Teams Dip Tanker Relationship Specialty Start Date End Date Laurie Banks [place] [address] PCP - General Family Medicine 12/26/22 documented as of this encounter
--- OUTSIDE RECORDS SUMMARY | 2024-06-03 03:10 | XMS_ITS | Encounter Summary ---
Author Organization [facility] [place] [address] Care Team Providers Care Airplane And Engine Inspector Name Role Phone Laurie Banks APRN Primary Care Provider [phone] Encounter Details Date Type Department Care Team (Latest Contact Info) Description 02/04/2023 Travel Social History Tobacco Use Types Packs/Day [...] on filedocumented in this encounter Care Teams Airplane And Engine Inspector Relationship Specialty Start Date End Date Laurie [place] [address] PCP - General Family Medicine 12/26/22 documented as of this encounter
--- OUTSIDE RECORDS SUMMARY | 2024-06-03 03:10 | XMS_ITS | Encounter Summary ---
Author Organization [facility] [place] [address] Care Team Providers Care Professor Of Radiology Name Role Phone Unavailable Primary Care Provider Unavailabl e Encounter Details Date Type Department Care Team (Late st Contact Info) Description 07/11/2020 Ancillary Procedure Radiology Library at [facility] [place] [phone] Laurie Banks APRN [address] [place] [address] [phone] Social History Tobacco Use Types Packs/Day Years [...] Comments FILM LIBRARY STORAGE ONLY MAMMO Routine 07/11/2020 12:00 AM EST documented in this encounter Results * Film Library- Storage Only Mammo (07/11/2020 12:00 AM EST) Narrative [facility] - 02/16/2023 8:40 AM EDT This exam is auto-finalizing. It's purpose is for storage only. Laurie BORREGO FILM LIBRARY ORD ERABLES [facility] [place] documented in this encounter Visit Diagnoses Not on filedocumented in this encounter
--- OUTSIDE RECORDS SUMMARY | 2024-06-03 03:10 | XMS_ITS | Encounter Summary ---
Author Organization [facility] [place] [address] Care Team Providers Care Certified Fire Investigator Name Role Phone Unavailable Primary Care Provider Unavailabl e Encounter Details Date Type Department Care Team (Late st Contact Info) Description 04/02/2022 Ancillary Procedure Radiology Library at [facility] [place] [phone] Laurie Banks APRN [address] [place] [address] [id number] Social History Tobacco Use Types Packs/Day Years [...] Name Priority Date/Time Associated Diagnosis Comments FILM LIBRARY-STORAGE ONLY US BREAST Routine 04/02/2022 12:00 AM EDT documented in this encounter Results * Film Library Storage Only US Breast (04/02/2022 12:00 AM EDT) Narrative [facility] - 02/16/2023 8:37 AM EDT This exam is auto-finalizing. It's purpose is for storage only. Laurie Banks APRN IMMaty FILM LIBRARY ORD ERABLES [place] documented in this encounter Visit Diagnoses Not on filedocumented in this encounter
--- OUTSIDE RECORDS SUMMARY | 2024-06-03 03:10 | XMS_ITS | Encounter Summary ---
Author Organization [facility] [address] Care Team Providers Care Pediatric Acute Care Unit Nurse Name Role Phone Unavailable Primary Care Provider Unavailabl e Encounter Details Date Type Department Care Team (Late st Contact Info) Description 08/26/2017 Ancillary Procedure Radiology Library at [facility] [place] [phone] Laurie Banks APRN [address] [place] [address] [phone] Social History Tobacco Use Types Packs/Day Years [...] Comments FILM LIBRARY STORAGE ONLY MAMMO Routine 08/26/2017 12:00 AM EST documented in this encounter Results * Film Library- Storage Only Mammo (08/26/2017 12:00 AM EST) Narrative [facility] - 02/28/2023 2:38 PM EDT This exam is auto-finalizing. It's purpose is for storage only. Laurie BORREGO FILM LIBRARY ORD ERABLES [facility] [place] documented in this encounter Visit Diagnoses Not on filedocumented in this encounter
--- OUTSIDE RECORDS SUMMARY | 2024-06-03 03:10 | XMS_ITS | Encounter Summary ---
Author Organization [facility] [place] [address] Care Team Providers Care Insulation Packer Name Role Phone Laurie Banks APRN Primary Care Provider [phone] Encounter Details Date Type Department Care Team (Late st Contact Info) Description 02/16/2023 8:40 AM EDT Ancillary Procedure Radiology Library at [facility] [place] [address] Laurie Banks APRN [address] [place] [address] Social History Tobacco Use Types Packs/Day Years [...] on filedocumented in this encounter Care Teams Insulation Packer Relationship Specialty Start Date End Date Laurie Banks APRN [address] [place], [place] [address] PCP - General Family Medicine 12/26/22 documented as of this encounter
--- OUTSIDE RECORDS SUMMARY | 2024-06-03 03:10 | XMS_ITS | Encounter Summary ---
Author Organization [facility] Address [facility] [place] [address] Care Team Providers Care Upper Caser Name Role Phone Laurie Banks APRN Primary Care Provider [phone] Encounter Details Date Type Department Care Team (Latest Contact Info) Description 08/24/2023 7:34 AM EST - 08/24/2023 11:59 PM EST Hospital En[place] [address] Jose Liu III, MD [facility] [place] [address] Abnormal finding on breast imaging Discharge Disposition: [...] Associated Diagnosis Comments MAMMO DIAGNOSTIC CAD AND BRIAN LEFT Routine 08/24/2023 8:33 AM EST Abnormal finding on breast imaging documented in this encounter Results * Mammo Diagnostic Cad and Brian Left (08/24/2023 8:33 AM EST) Anatomical Region Laterality Modality Breast Left Mammography Impressions 08/24/2023 8:36 AM EST Stable 8 mm oval mass posterior left 2:00 position. Continued follow-up is recommended. A bilateral diagnostic exam, to include additional imaging on the left, will be due in February 2024. The patient is aware of recommendation. FINAL ASSESSMENT: BI-RADS Category 3: Probably Benign Finding. Short interval follow-up Thank you for letting us participate in the care of this patient. ??If you are a health care provider and have any questions regarding this report, please contact the number below. ??For patients who have questions please contact the health care transition coordinator that requested your imaging first. ? Narrative 08/24/2023 8:36 AM EST DIAGNOSTIC MAMMOGRAPHY OF THE LEFT BREAST CLINICAL HISTORY: 6 month f/u ??PER DR LIU TECHNIQUE AND VIEWS OBTAINED: CC and MLO views were obtained of the LEFT breast. 2D and 3D tomosynthesis images were obtained. Computer aided detection was used. COMPARISON: Prior images BREAST DENSITY: There are scattered areas of fibroglandular density. FINDINGS: There is an 8 mm oval mass in the posterior left 2:00 position, unchanged from the past exam. No other suspicious lesions. Jose Liu III, MD IMG MAMMO [place] documented in this encounter Visit Diagnoses Diagnosis Abnormal finding on breast imaging Other (abnormal) findings on radiological examination of breast documented in this encounter Care Teams Upper Caser Relationship Specialty Start Date End Date Laurie Banks APRN [facility] [place] [address] PCP - General Family Medicine 12/26/22 documented as of this encounter
--- OUTSIDE RECORDS SUMMARY | 2024-06-03 03:10 | XMS_ITS | Continuity of Care Document ---
Author Organization [facility] Address [address] [place] [address] [facility]09[facility]23 - 05/09/[address] [address] Discharge Disposition: Home or Self Care Attending Physician: Laurie Kruse PA-C Admitting Physician: Laurie Kruse PA-C Allergies, Adverse Reactions, Alerts Substance Reaction Severity Status Percocet Vomit Moderate Active Assessment and Plan Diagnostic Tests Pending * Urine Culture 05/09/23 Social History Social History Type Response Tobacco Never tobacco user T obacco Use:. Sex Patient Care team information Care Team Related Persons Name: DECLINED, DECLINED
--- OUTSIDE RECORDS SUMMARY | 2024-06-03 03:10 | XMS_ITS | Referral Summary ---
Author Organization [facility] Address [address] [place] [address] Care Team Providers Care Asian Art Curator Name Role Phone Unknown, Provider Primary Care Provider Social History Tobacco Use Types Packs/Day Years Used Date Smoking Tobacco: Never Assessed Sex and Gender Information Value Date Recorded Sex Assigned at Not on file Gender Identity Not on file Sexual Orientation Not on file Plan of Treatment Not on file Care Teams Asian Art Curator Relationship Specialty Start Date End Date Unknown, Provider, PCP - General 09/07/23
--- OUTSIDE RECORDS SUMMARY | 2024-06-03 03:10 | XMS_ITS | Encounter Summary ---
[place] [address] Care Team Providers Care Antique Finisher Name Role Phone Laurie Banks APRN Primary Care Provider [phone] Encounter Details Date Type Department Care Team (Latest Contact Info) Description 02/11/2023 7:36 AM EDT - 02/11/2023 11:59 PM EDT Hospital Encounter Mammography/[place] [address] Laurie Banks APRN [address] [place] [address] Screening mammogram for breast cancer Discharge Disposition: Home Social History Tobacco Use [...] Name Priority Date/Time Associated Diagnosis Comments MAMMO SCREENING CAD AND ALEA BILATERAL Routine 02/11/2023 8:20 AM EDT Screening mammogram for breast cancer documented in this encounter Results * Mammo Screening Cad and Alea Bilateral (02/11/2023 8:20 AM EDT) Anatomical Region Laterality Modality Breast Bilateral Mammography Addenda Addendum by Kayley Peña MD on 02/16/2023 1:04 PM EDT --------ADDENDUM #1-------- Comparisons became available from 2020. The mass in the LEFT breast is new and therefore additional imaging is required BI-RADS Category 0: Incomplete-Need Additional Imaging Evaluation and/or Prior Mammograms for Comparison Thank you for letting us participate in the care of this patient. ??If you are a health care provider and have any questions regarding this report, please contact the number below. ??For patients who have questions please contact the health home care rn that requested your imaging first. ? Electronically signed by: Kayley Peña MD, [facility] ([phone]), at 02/16/2023 12:58 PM --------ORIGINAL REPORT -------- REASON FOR EXAM: Screening TECHNIQUE: CC and MLO views were obtained of the Bilateral breast.Computer aided detection was used. 3D tomosynthesis images were obtained in addition to 2D images. COMPARISON: No prior imaging available at the time of interpretation BREAST DENSITY: There are scattered areas of fibroglandular density. FINDINGS: RIGHT BREAST: There are no suspicious microcalcifications, masses, or areas of distortion. No changes compared to prior studies. LEFT BREAST: There is a 1 cm Mass at 1:00 radian 11.5 cm from the nipple. Additional imaging is required. No suspicious microcalcification or architectural distortion. IMPRESSION: Left breast mass requiring further imaging or comparison to prior studies. If priors are made available an addendum will be issued. BI-RADS Category 0: Incomplete-Need Additional Imaging Evaluation RECOMMENDATION: The patient will be contacted regarding the additional imaging. Thank you for letting us participate in the care of this patient. ??If you are a health care provider and have any questions regarding this report, please contact the number below. ??For patients who have questions please contact the health home care rn that requested your imaging first. ? Electronically signed by: KALLIE LINARES MD, [facility] ([phone]), at 02/11/2023 11:40 AM Impressions 02/11/2023 11:40 AM EDT Left breast mass requiring further imaging or comparison to prior studies. If priors are made available an addendum will be issued. BI-RADS Category 0: Incomplete-Need Additional Imaging Evaluation RECOMMENDATION: The patient will be contacted regarding the additional imaging. Thank you for letting us participate in the care of this patient. ??If you are a health care provider and have any questions regarding this report, please contact the number below. ??For patients who have questions please contact the health home care rn that requested your imaging first. ? Electronically signed by: KALLIE LINARES MD, [facility] ([phone]), at 02/11/2023 11:40 AM Narrative 02/11/2023 11:40 AM EDT REASON FOR EXAM: Screening TECHNIQUE: CC and MLO views were obtained of the Bilateral breast.Computer aided detection was used. 3D tomosynthesis images were obtained in addition to 2D images. COMPARISON: No prior imaging available at the time of interpretation BREAST DENSITY: There are scattered areas of fibroglandular density. FINDINGS: RIGHT BREAST: There are no suspicious microcalcifications, masses, or areas of distortion. No changes compared to prior studies. LEFT BREAST: There is a 1 cm Mass at 1:00 radian 11.5 cm from the nipple. Additional imaging is required. No suspicious microcalcification or architectural distortion. Procedure Note Kallie Linares MD / Kayley Peña MD - 02/12/2023 REASON FOR EXAM: Screening TECHNIQUE: CC and MLO views were obtained of the Bilateral breast.Computeraided detection was used. 3D tomosynthesis images were obtained in addition to2D images. COMPARISON: No prior imaging available at the time of interpretation BREAST DENSITY: There are scattered areas of fibroglandular density. FINDINGS: RIGHT BREAST: There are no suspicious microcalcifications, masses, orareas of distortion. No changes compared to prior studies. LEFT BREAST: There is a 1 cm Mass at 1:00 radian 11.5 cm from thenipple. Additional imaging is required. No suspicious microcalcification or architectural distortion. IMPRESSION Left breast mass requiring further imaging or comparison to prior studies.If priors are made available an addendum will be issued. BI-RADS Category 0: Incomplete-Need Additional Imaging Evaluation RECOMMENDATION: The patient will be contacted regarding the additional imaging. Thank you for letting us participate in the care of this patient. If youare a health care provider and have any questions regarding this report,please contact the number below. For patients who have questions please contactthe health home care rn that requested your imaging first. Electronically signed by: KALLIE LINARES MD, [facility]([phone]), at 02/11/2023 11:40 AM Laurie Banks APRN IMG MAMMO ORDERABLES documented in this encounter Visit Diagnoses Diagnosis Screening mammogram for breast cancer documented in this encounter Care Teams Antique Finisher Relationship Specialty Start Date End [place] [address] PCP - General Family Medicine 12/26/22 documented as of this encounter
--- OUTSIDE RECORDS SUMMARY | 2024-06-03 03:10 | XMS_ITS | Encounter Summary ---
Author Organization [facility] [place] [address] Care Team Providers Care Refuse Collector Supervisor Name Role Phone Laurie Banks APRN Primary Care Provider [phone] Encounter Details Date Type Department Care Team (Latest Contact Info) Description 02/11/2023 Travel Social History Tobacco Use Types Packs/Day [...] on filedocumented in this encounter Care Teams Refuse Collector Supervisor Relationship Specialty Start Date End Date Laurie [place] [address] PCP - General Family Medicine 12/26/22 documented as of this encounter
--- OUTSIDE RECORDS SUMMARY | 2024-06-03 03:10 | XMS_ITS | Encounter Summary ---
Author Organization [facility] [place] [address] Care Team Providers Care Jig Boring Machine Set Up Operator Name Role Phone Unavailable Primary Care Provider Unavailabl e Encounter Details Date Type Department Care Team (Late st Contact Info) Description 03/31/2022 Ancillary Procedure Radiology Library at [facility] [place] [phone] Laurie Banks APRN [address] [place] [address] [id number] Social History Tobacco Use Types Packs/Day Years [...] Comments FILM LIBRARY STORAGE ONLY MAMMO Routine 03/31/2022 12:00 AM EDT documented in this encounter Results * Film Library- Storage Only Mammo (03/31/2022 12:00 AM EDT) Narrative [facility] - 02/28/2023 2:37 PM EDT This exam is auto-finalizing. It's purpose is for storage only. Laurie BORREGO FILM LIBRARY ORD ERABLES [place] [place] documented in this encounter Visit Diagnoses Not on filedocumented in this encounter
--- OUTSIDE RECORDS SUMMARY | 2024-06-03 03:10 | XMS_ITS | Encounter Summary ---
Author Organization [facility] [place] [address] Care Team Providers Care Girls Tennis Coach Name Role Phone Laurie Banks APRN Primary Care Provider Encounter Details Date Type Department Care Team (Latest Contact Info) Description 08/23/2023 Travel Social History Tobacco Use Types Packs/Day [...] on filedocumented in this encounter Care Teams Girls Tennis Coach Relationship Specialty Start Date End Date Laurie [place] [address] PCP - General Family Medicine 12/26/22 documented as of this encounter
--- OUTSIDE RECORDS SUMMARY | 2024-06-03 03:10 | XMS_ITS | Continuity of Care Document ---
Author Organization [facility] Address [address] [place] [address] Care Team Providers Care Penetration Tester Name Role Phone Laurie Kruse Primary Care Physician Encounter [facility] Date(s): 07/18/23 - 07/18/[address] [address] Discharge Disposition: Home or Self Care Attending Physician: Laurie Kruse PA-C Admitting Physician: Laurie Kruse PA-C Allergies, Adverse Reactions, Alerts Substance Reaction Severity Status Percocet Vomit Moderate Active Assessment and Plan Future Appointments Social History Social History Type Response Tobacco Never tobacco user T obacco Use:. Sex Patient Care team information Care Team Personnel Name: Laurie Kruse PA-C Position: PowerChart View Only Member Role: Primary Care Physician Address: Address: [facility] [address] [address] [place] Care Team Related Persons Name: KAREN RUSSELL
--- OUTSIDE RECORDS SUMMARY | 2024-06-03 03:10 | XMS_ITS | Continuity of Care Document ---
Author Organization [facility] Address [address] [place] [address] Care Team Providers Care Calibration Specialist Name Role Phone Laurie Kruse Primary Care Physician Encounter [facility] Date(s): 07/18/23 - 07/18/[address] [address] Discharge Disposition: Home or Self Care Attending Physician: Serafin Calderon PA-C Admitting Physician: Serafin Calderon PA-C Allergies, Adverse Reactions, Alerts Substance Reaction Severity Status Percocet Vomit Moderate Active Assessment and Plan Future Appointments Diagnostic Tests Pending * Urine Culture 07/18/23 Social History Social History Type Response Tobacco Never tobacco user T obacco Use:. Sex Patient Care team information Care Team Personnel Name: Laurie Kruse PA-C Position: PowerChart View Only Member Role: Primary Care Physician Address: Address: [facility] [address] [facility] [address] [place] [address] [place] Care Team Related Persons Name: KAREN RUSSELL
--- OUTSIDE RECORDS SUMMARY | 2024-06-03 03:10 | XMS_ITS | Encounter Summary ---
Author Organization [facility] Address [facility] [place] [address] Care Team Providers Care Wastewater Process Engineer Name Role Phone Laurie Banks APRN Primary Care Provider [phone] Encounter Details Date Type Department Care Team (Latest Contact Info) Description 03/14/2024 1:20 PM EDT - 03/14/2024 11:59 PM EDT Hospital Encounter [place] [address] Carlotta Martinez MD [facility] DR DIAGNOST[place] [address] Abnormal finding on breast imaging Discharge Disposition: [...] Diagnosis Comments MAMMO DIAGNOSTIC CAD AND BRIAN BILATERAL Routine 03/14/2024 2:44 PM EDT Abnormal finding on breast imaging documented in this encounter Results * Mammo Diagnostic CAD and Brian Bilateral (03/14/2024 2:44 PM EDT) WORKSTATION ID [id number] 1 DH RAD Anatomical Region Laterality Modality [...] who have questions please contact the health day care teacher that requested your imaging first. ? Narrative 03/14/2024 4:59 PM EDT EXAMINATION: MAMMO DIAGNOSTIC CAD AND BRIAN BILATERAL CLINICAL HISTORY: abnormal finding on breast [...] Carlotta Martinez MD IMG MAMMO ORDERAB LES documented in this encounter Visit Diagnoses Diagnosis Abnormal finding on breast imaging Other (abnormal) findings on radiological examination of breast documented in this encounter Care Teams Wastewater Process Engineer Relationship Specialty Start Date End Date Laurie Banks, CONTACT ASSEMBLER [address] [address] PCP - General Family Medicine 12/26/22 documented as of this encounter
--- OUTSIDE RECORDS SUMMARY | 2024-06-03 03:10 | XMS_ITS | Encounter Summary ---
Author Organization [facility] Address [address] [place] [address] Care Team Providers Care Single Ending Machine Operator Name Role Phone Unknown, Provider Primary Care Provider Encounter Details Date Type Department Care Team (Late st Contact Info) Description 09/23/2023 Lab [facility] Pathology & Laboratory Medicine - [facility] [address], [place] [id number] Serafin Mixon MD [address] [place] [phone] Encounter for other general examination Social History Tobacco Use Types Packs/Day Years Used Date Smoking Tobacco: Never Assessed Sex and Gender Information Value Date Recorded Sex Assigned at Not on file Gender Identity Not on file Sexual Orientation Not on file documented as of this encounter Plan of Treatment Not on file documented as of this encounter Procedures Procedure Name Priority Date/Time Associated Diagnosis Comments SURGICAL PATHOLOGY Today 09/23/2023 11 :48 EST Encounter for other general examination documented in this encounter Results * SURGICAL PATHOLOGY (09/23/2023 11:48 EST) Note to Patient The following pathology results have been interpreted by your pathologist and may be available to you before your health provider has had the opportunity to review them. Please allow time for your provider to receive these results and explore management options, if applicable. 09/26/2023 12:38 EST [facility] Final Diagnosis A. COLON, ASCENDING, POLYP, BIOPSY: - Tubular adenoma. B. COLON, TRANSVERSE, POLYP, BIOPSY: - Tubular adenoma. C. COLON, 40 CM, BIOPSY: - Colonic mucosa without significant diagnostic abnormality. 09/26/2023 12:38 EST [facility] Attestation By the signature below, the attending physician certifies that they have 1) personally conducted a gross and/or microscopic examination of the described specimen(s), and/or personally interpreted the results of laboratory testing of the described specimen(s), and 2) personally rendered or confirmed the above diagnosis. 09/26/2023 12:38 [facility] at 1238 Clinical History Screening for colon cancer 09/26/2023 12:38 [facility] Gross Description A. Received in formalin labelled with proper patient identification (initials S, J) and ascending colon polyp is a single newby-brown polypoid tissue (0.6 x 0.4 x 0.3 cm). The specimen is bisected and submitted entirely in A1. B. Received in formalin labelled with proper patient identification (initials S, J) and transverse colon polyp is a single newby-pink polypoid tissue (0.2 x 0.3 x 0.2 cm). Submitted intact in B1. C. Received in formalin labelled with proper patient identification (initials S, J) and 40 cm bx are 2 newby tissues (0.2 x 0.1 x 0.1 cm and 0.6 x 0.2 x 0.1 cm). Submitted entirely in C1. MADALYN CABRERA(ASCP) 09/24/2023 8:00 09/26/2023 12:38 [facility] Performing Lab [facility] 09/26/2023 12:38 [facility] Scanned Images 09/26/2023 12:38 [facility] Tissue COLON STRUCTURE / Unknown 09/23/2023 11:48 EST 09/23/2023 16:48 EST Tissue specimen (specimen) COLON STRUCTURE / Unknown 09/23/2023 11:48 EST 09/23/2023 16:48 EST Tissue specimen (specimen) COLON STRUCTURE / Unknown 09/23/2023 11:48 EST 09/23/2023 16:48 EST Serafin Mixon MD PATHOLOGY DEJAH MEADE [facility] [address] [place] [address] documented in this encounter Visit Diagnoses Diagnosis Encounter for other general examination documented in this encounter Care Teams Single Ending Machine Operator Relationship Specialty Start Date End Date Unknown, Provider, PCP - General 09/07/23 documented as of this encounter
--- OUTSIDE RECORDS SUMMARY | 2024-06-03 03:10 | XMS_ITS | Continuity of Care Document ---
Author Organization [facility] Address [address] [place] [address] Encounter [facility] Date(s): 06/05/23 - 06/05/[address] [phone] Discharge Disposition: Home or Self Care Attending Physician: Adrienne Vazquez Admitting Physician: Adrienne Vazquez Allergies, Adverse Reactions, Alerts Substance Reaction Severity Status Percocet Vomit Moderate Active Assessment and Plan Diagnostic Tests Pending * Urine Culture 06/05/23 Social History Social History Type Response Tobacco Never tobacco user T obacco Use:. Sex Patient Care team information Care Team Related Persons Name: DECLINED, DECLINED
--- OUTSIDE RECORDS SUMMARY | 2024-06-03 03:10 | XMS_ITS | Encounter Summary ---
Author Organization [facility] [place] [address] Care Team Providers Care Precinct I Police Sergeant Name Role Phone Unavailable Primary Care Provider Unavailabl e Encounter Details Date Type Department Care Team (Late st Contact Info) Description 05/05/2022 Ancillary Procedure Radiology Library at [facility] [place] [phone] Laurie Banks APRN [address] [place] [phone] Social History Tobacco Use Types Packs/Day Years [...] Comments FILM LIBRARY-STORAGE ONLY US BREAST Routine 05/05/2022 12:00 AM EDT documented in this encounter Results * Film Library Storage Only US Breast (05/05/2022 12:00 AM EDT) Narrative SAHIL - 02/16/2023 8:36 AM EDT This exam is auto-finalizing. It's purpose is for storage only. Laurie Banks APRN IMMaty FILM LIBRARY ORD ERABLES [place] documented in this encounter Visit Diagnoses Not on filedocumented in this encounter
--- OUTSIDE RECORDS SUMMARY | 2024-06-03 03:10 | XMS_ITS | Encounter Summary ---
Author [facility] [place] [address] Care Team Providers Care Infection Control Specialist Name Role Phone Laurie Banks APRN Primary Care Provider [phone] Encounter Details Date Type Department Care Team (Latest Contact Info) Description 02/20/2023 Travel Social History Tobacco Use Types Packs/Day [...] on filedocumented in this encounter Care Teams Infection Control Specialist Relationship Specialty Start Date End Date Laurie [place] [address] PCP - General Family Medicine 12/26/22 documented as of this encounter
--- OUTSIDE RECORDS SUMMARY | 2024-06-03 03:10 | XMS_ITS | Encounter Summary ---
Author Organization [facility] [place] [address] Care Team Providers Care Set Up Worker Name Role Phone Unavailable Primary Care Provider Unavailabl e Encounter Details Date Type Department Care Team (Late st Contact Info) Description 04/06/2019 Ancillary Procedure Radiology Library at [facility] [place] [phone] Laurie Banks APRN [address] [place] [phone] Social History Tobacco Use Types Packs/Day Years [...] Comments FILM LIBRARY STORAGE ONLY MAMMO Routine 04/06/2019 12:00 AM EDT documented in this encounter Results * Film Library- Storage Only Mammo (04/06/2019 12:00 AM EDT) Narrative SAHIL - 02/28/2023 2:38 PM EDT This exam is auto-finalizing. It's purpose is for storage only. Laurie [place]REGO FILM LIBRARY ORD ERABLES [facility] [place] [place] documented in this encounter Visit Diagnoses Not on filedocumented in this encounter
--- OUTSIDE RECORDS SUMMARY | 2024-06-03 03:10 | XMS_ITS | Encounter Summary ---
Author Organization [facility] [place] [address] Care Team Providers Care Electrical Designer Name Role Phone Unavailable Primary Care Provider Unavailabl e Encounter Details Date Type Department Care Team (Late st Contact Info) Description 04/14/2019 Ancillary Procedure Radiology Library at [facility] [place] [phone] Laurie Banks APRN [address] [place] [phone] Social History Tobacco Use Types Packs/Day Years [...] Comments FILM LIBRARY-STORAGE ONLY US BREAST Routine 04/14/2019 12:00 AM EDT documented in this encounter Results * Film Library Storage Only US Breast (04/14/2019 12:00 AM EDT) Narrative SAHIL - 02/28/2023 2:37 PM EDT This exam is auto-finalizing. It's purpose is for storage only. Laurie BORREGO FILM LIBRARY ORD ERABLES [place] documented in this encounter Visit Diagnoses Not on filedocumented in this encounter
--- OUTSIDE RECORDS SUMMARY | 2024-06-03 03:10 | XMS_ITS | Clinical Summary ---
Author Organization [facility] Address [address] [place] [address] Care Team Providers Care Chemical Processor Name Role Phone Unknown, Provider Primary Care Provider Social History Tobacco Use Types Packs/Day Years Used Date Smoking Tobacco: Never Assessed Sex and Gender Information Value Date Recorded Sex Assigned at Not on file Gender Identity Not on file Sexual Orientation Not on file Plan of Treatment Health Maintenance Due Date Last Done Comments Hepatitis C Screen 1975 Hepatitis B Vaccine (1 of 3 - 19+ 3-dose series) 11/20 COVID-19 Vaccine ( season) 2023 Care Teams Chemical Processor Relationship Specialty Start Date End Date Unknown, Provider, PCP - General 09/07/23
[2024-06-03 11:52] LABS: HCT 39.8 % (36.0-46.0); HGB 13.3 g/dL (11.2-15.7); MCH 29.6 pg (27.0-33.0); MCHC 33.4 % (32.0-36.0); MCV 89 fL (80-95); Platelet Count 294 10^3/uL (130-400); RBC 4.49 10^6/uL (3.93-5.22); RDW 11.3 % (11.7-14.6); RDW-SD 36.6 fL; WBC 5.52 10^3/uL (4.4-10.8)
[2024-06-03 12:16] LABS: Anion Gap 5.1 mmol/L (3-11); BUN 15 mg/dL (7-18); CO2 30.9 mmol/L (21.0-32.0); CREATININE 0.9 mg/dL (0.55-1.02); Calcium 9.2 mg/dL (8.5-10.1); Chloride 106 mmol/L (98-107); Estimated GFR 78.86 (mL/min/1.73m2); Glucose 103 mg/dL (74-106); Potassium 3.4 mmol/L (3.5-5.1); Sodium 142 mmol/L (136-145)
== END 2024-06-03 02:35 | disposition home or self-care (01) ==
LOC: LBO 02:34
PROVIDERS: PCP Nurse Practitioner Family; Visit Provider Student in an Organized Health Care Education/Training Program
DX: M16.12 Unilateral primary osteoarthritis, left hip (principal); Z01.818 Encounter for other preprocedural examination
CPT/HCPCS: 36415; 80048; 85027

== ENCOUNTER 2024-06-15 07:16 | Observation (INO) | payer OTHER, SELFPAY ==
[2024-06-15] VITALS (31 sets, daily range): BP systolic 117–168; BP diastolic 80–117; PULSE 69–101; RESP 11–25; TEMP 35.9–36.6; O2SAT 92–100; BMI 34.0
--- NOTE | 2024-06-15 | DI.RAD_ITS ---
Exam(s) XR HIP LT AP LAT ONLY EXAM: XR HIP LT AP LAT ONLY CLINICAL HISTORY: pain s/p TYRON. TECHNIQUE: 2D digital imaging was performed. COMPARISON: XA XR HIP LT IN OR from 06/15/2024 FINDINGS: Two postop views reveal satisfactory position alignment of the components of the newly placed left hi p prosthesis. No fracture or loosening evident. IMPRESSION: Satisfactory postop appearance. DATA REPOSITORY: RADIATION DOSE DELIVERED:
--- NOTE | 2024-06-15 06:45 | DI.RAD_ITS ---
Exam(s) XR HIP LT IN OR EXAM: XR HIP LT IN OR CLINICAL HISTORY: left hip OA. TECHNIQUE: 2D digital imaging was performed. COMPARISON: No exams were available for comparison FINDINGS: Fluoroscopy provided during left hip arthroplasty. See procedure report for details IMPRESSION: Radiation exposure index/cumulative dose:lauri Tiwari= 4.9 mGy DATA REPOSITORY: RADIATION DOSE DELIVERED:
[2024-06-15] MEDS: Acetaminophen 500 MG TAB 1000 MG PO ×3 (06:58→22:56)
[2024-06-15] MEDS: Celecoxib 200 MG CAP 400 MG PO (06:59)
--- NOTE | 2024-06-15 07:03 | W.ANESPRE ---
General Info Date of Service Date Performed: 06/15/24 Height: 5 ft 5 in Weight: 92.9 kg Body Mass Index (BMI): 34.0 Surgical Procedure: Operation Date: 06/15/24 07:50 Proposed Procedure Side Surgeon p Hip Total Hip Anterior Left Andrew Zaidi MD Meds Allergies and Home Medications Allergies Allergy/AdvReac Type Severity Reaction Status Date / Time oxycodone (From Percocet) AdvReac Unknown Nausea Verified 06/15/24 06:23 Home Medication ?Medication ?Instructions ?Recorded metoprolol succinate 100 mg 100 mg PO DAILY 07/16/23 tablet,extended release 24 hr pantoprazole 40 mg tablet,delayed 40 mg PO DAILY 07/16/23 release rosuvastatin 10 mg tablet 10 mg PO DAILY 07/16/23 hydrochlorothiazide 25 mg tablet 50 mg PO DAILY 08/18/23 ketoconazole 2 % shampoo 1 applic topical ONCE PRN 08/18/23 estradiol 0.1 mg/24 hr semiweekly 1 patch transdermal ONCE 11/03/23 transdermal patch semaglutide 0.25 mg or 0.5 mg (2 2 mg subcut QWEEK 11/03/23 mg/3 mL) subcutaneous pen injector (Ozempic) losartan 25 mg tablet 25 mg PO DAILY 04/25/24 meloxicam 7.5 mg tablet 7.5 mg PO DAILY 06/14/24 lisinopril 10 mg tablet 10 mg PO DAILY 06/15/24 Current Visit Medications: Current Medications Generic Name Dose Route Start Last Admin Trade Name Freq PRN Reason Stop Dose Admin Acetaminophen 1,000 mg 06/15/24 06:00 06/15/24 06:58 Acetaminophen 500 Mg Tab PO 06/15/24 23:59 1,000 mg PREOP DAWSON Administration Celecoxib 400 mg 06/15/24 06:00 06/15/24 06:59 Celecoxib 200 Mg Cap PO 06/15/24 23:59 400 mg PREOP DAWSON Administration Ringer's Solution 1,000 mls @ 80 mls/hr 06/15/24 06:00 IV 06/15/24 23:59 INFUSION DAWSON Cefazolin Sodium/Dextrose 2 gm in 50 mls @ 100 mls/hr 06/15/24 06:00 Ancef Duplex IVPB 06/15/24 23:59 PREOP DAWSON Tranexamic Acid/Sodium Chloride 1,000 mg in 100 mls @ 600 mls/hr 06/15/24 06:00 IVPB 06/15/24 23:59 PREOP DAWSON IV Miscellaneous Supplies 1 each 06/15/24 06:00 Iv Access IV 06/15/24 23:59 DIRECTED DAWSON Sodium Chloride 0 ml 06/15/24 06:00 Normal Saline Flush 10 Ml Syr IV 06/15/24 23:59 PRN PRN Sodium Chloride 0 ml 06/15/24 06:00 Normal Saline 10 Ml Vial IJ 06/15/24 23:59 DIRECTED PRN Sterile Water 0 ml 06/15/24 06:00 Water,Injection,Sterile 10 Ml Vial IJ 06/15/24 23:59 DIRECTED PRN PFSH Active Problems Active Problems: Problem Status Onset Code Osteoarthritis of left hip Acute M16.12 Diabetes Chronic E11.9 Obesity Chronic E66.9 Hypertension Chronic I10 Medical History Medical History Tubular adenoma of colon (~09/2023) Arthritis Hyperlipidemia GERD (gastroesophageal reflux disease) History of frequent urinary tract infections Hirsutism Bilateral sciatica Family history of colon cancer in mother Surgical History Surgical History Hx of hysterectomy History of colonoscopy (~09/2023) path sent History of hysterectomy Tobacco Smoking/Tobacco Use Status: Never Alcohol Alcohol Intake: never Substance Use Substance use type: does not use Vital Signs and Lab Results Vital Signs Most Recent Vital Signs in EMR: Most Recent Vital Signs Temp Pulse Resp BP Pulse Ox 36.4 C L 87 16 120/84 99 06/15/24 06:10 06/15/24 06:10 06/15/24 06:10 06/15/24 06:10 06/15/24 06:10 Point of Care Results Point of Care Results: Finger Stick Blood Glucose 123 06/15/24 06:45 Lab Results Blood Type / Crossmatch: No Data to Display Complete Blood Count: White Blood Count 5.52 10^3/uL (4.4-10.8) 06/03/24 11:46 Red Blood Count 4.49 10^6/uL (3.93-5.22) 06/03/24 11:46 Hemoglobin 13.3 g/dL (11.2-15.7) 06/03/24 11:46 Hematocrit 39.8 % (36.0-46.0) 06/03/24 11:46 Platelet Count 294 10^3/uL (130-400) 06/03/24 11:46 Complete Metabolic Panel: Sodium 142 mmol/L (136-145) 06/03/24 11:46 Potassium 3.4 mmol/L (3.5-5.1) L 06/03/24 11:46 Chloride 106 mmol/L (98-107) 06/03/24 11:46 Carbon Dioxide 30.9 mmol/L (21.0-32.0) 06/03/24 11:46 BUN 15 mg/dL (7-18) 06/03/24 11:46 Creatinine 0.9 mg/dL (0.55-1.02) 06/03/24 11:46 Est GFR (CKD-EPI 2020) 78.86 (mL/min/1.73m2) 06/03/24 11:46 Calcium 9.2 mg/dL (8.5-10.1) 06/03/24 11:46 Glucose 103 mg/dL (74-106) 06/03/24 11:46 Liver Function Panel: No Data to Display Coagulation Panel: No Data to Display Cardiac Panel: No Data to Display Arterial Blood Gas: No Data to Display Venous Blood Gas: No Data to Display Pancreas Panel: No Data to Display Thyroid Panel: No Data to Display Infectious Disease: No Data to Display Blood Cultures: No Data to Display Toxicology Panel: No Data to Display Panel: No Data to Display Anesthesia Assessment and Plan Anesthesia History Personal History: No History of Anesthesia Complications Family History: No Family History of Anesthesia Complications Exercise Tolerance Exercise Tolerance: Metabolic Equivalents>4 Pertinent Negatives Pertinent Negatives: No Symptoms of GERD Cardiac & Pulmonary Exam Cardiac Exam: Normal S1/S2 Heart Sounds Pulmonary Exam: Clear Bilateral Breath Sounds Implantable Cardiac Device Does patient have a Pacemaker or an ICD?: No Airway Exam Known Difficult Airway: No Mallampati Class: 1 Mouth Opening: Normal (> 3cm) Thyromental Distance: Greater than 3 cm Neck Range of Motion: Full ROM Neck Circumference: Normal Teeth Condition: Normal Dentition ASA Classification ASA Score: ASA 2 Emergency Case?: No NPO Status NPO Status: NPO Clears >2 hours, Solids >8 hours Status Status: Negative HCG Anesthesia Plan Resuscitation Status: Full Code Anesthesia Technique: Spinal Anesthesia Airway Planned: Natural Airway Monitors Used: Standard Monitors
--- NOTE | 2024-06-15 07:20 | W.PM.DSUDISC ---
Date of service: 06/15/24 Time of Service: 07:21 Discharge Plan Disposition Condition: Good Discharge Details Reason For Visit: OA L Hip Admit Date/Time: 06/15/24 15:39 Admit Provider: Andrew Zaidi Attending Provider: Andrew Zaidi Primary Care Provider: Laurie Banks Home Meds and New Rx's Prescriptions: New acetaminophen 500 mg tablet 1,000 mg PO TID Qty: 90 3RF aspirin 81 mg tablet,delayed release (DR/EC) 81 mg PO BID Qty: 60 0RF celecoxib 200 mg capsule 200 mg PO BID Qty: 60 0RF hydromorphone 2 mg tablet 1 - 2 mg PO Q4H PRN (Reason: pain) Qty: 20 0RF pantoprazole 40 mg tablet,delayed release (DR/EC) 40 mg PO DAILY Qty: 30 0RF dexamethasone 4 mg tablet 4 mg PO DAILY Qty: 2 0RF Continued losartan 25 mg tablet 25 mg PO DAILY metoprolol succinate 100 mg tablet extended release 24 hr 100 mg PO DAILY rosuvastatin 10 mg tablet 10 mg PO DAILY pantoprazole 40 mg tablet,delayed release (DR/EC) 40 mg PO DAILY hydrochlorothiazide 25 mg tablet 50 mg PO DAILY ketoconazole 2 % shampoo 1 applic topical ONCE PRN Ozempic 0.25 mg or 0.5 mg (2 mg/3 mL) pen injector 2 mg subcut QWEEK estradiol 0.1 mg/24 hr patch semiweekly 1 patch transdermal ONCE Patient Comments: weekly applied; in place L anterior abdomen lisinopril 10 mg tablet 10 mg PO DAILY Discontinued meloxicam 7.5 mg tablet 7.5 mg PO DAILY Patient Comments: TAKE 1 TABLET BY MOUTH ONCE DAILY Discharge Instructions Additional Instructions: Total Hip Discharge Instructions Activity: The most important activity is to walk. You should try to take short walks a few times a day. You have no restrictions on movement or positioning, but do not try to force what you do. You will find some stiffness and weakness with hip flexion (lifting your knee). Do not try to strengthen this too early, continue to practice walking and stairs and this will come. - Outpatient physical therapy can be helpful to help return you to a normal gait and improve your flexibility and strength. This can start around 2 weeks. For some patients, it?s not necessary. Usually this is determined at the time of discharge or at the first post-operative visit. - You should wear the TREMAYNE hose on both legs for 2 weeks. Dressing: Keep the surgical dressing in place for at least one week. After the first week it may be removed and replace with light gauze and tape or nothing. It may get wet after 3 days but avoid soaking the dressing. If it gets wet, just lightly pat dry. It is important to always keep some gauze between skin folds, especially when you are sitting. Spend some time with the wound exposed when you are lying flat as the incision does wrinkle onto itself. Medications: - You should take Tylenol and an anti-inflammatory Celebrex as your primary pain control medications. If the Celebrex is too expensive or not covered, please call the office for another alternative (Advil/Ibuprofen or Naproxen/Aleve). - You have been prescribed a stronger pain medication hydromorphone for breakthrough pain, take as needed as prescribed. - You have also been prescribed a stomach acid reduction agent Pantoprozole to help reduce stomach acid and reflux. - You have also been prescribed Decadron to help with post-operative nausea and pain. You will take this for two days starting tomorrow. - You will be taking Aspirin 81mg twice a day for DVT prevention unless instructed otherwise. - If you have constipation you should take Colace or Miralax (both [id number]). It takes most people 3-4 days to have a bowel movement. Follow-up: 2 weeks If you have any acute concerns or questions, please do not hesitate to contact the office at [phone]. You may contact Dr. Zaidi with any questions after hours through the hospital at [phone] or on his cell phone at [phone]. Equipment/Supplies: Walker Activity:: Activity as Tolerated Shower/Bathe:: 72 hours Diet:: As Tolerated DS: Diagnosis Discharge Diagnosis (1) Osteoarthritis of left hip: Status: Acute
[2024-06-15] MEDS: Lactated Ringers 1,000 ML 80 ML IV ×2 (08:18→17:22)
[2024-06-15] MEDS: ceFAZolin 2 GM/50 ML BAG IVPB (08:26)
[2024-06-15] MEDS: TRANEXAMIC ACID/SOD. CHL. 1,000 MG/100 ML BAG 600 MG IVPB (08:47)
[2024-06-15] MEDS: HYDROmorphone 2 MG TAB PO ×5 (11:08→22:56)
--- NOTE | 2024-06-15 11:42 | W.ANESPOSTOP ---
Postoperative Evaluation Date, Time and Location Date Performed: 06/15/24 Time Performed: 11:00 Patient Location: Day Surgery Unit Vital Signs Most Recent Imported Vital Signs: Most Recent Vital Signs Temp Pulse Resp BP Pulse Ox 36.1 C L 70 14 137/95 H 97 06/15/24 10:46 06/15/24 10:46 06/15/24 10:46 06/15/24 10:46 06/15/24 10:46 Pain Score Most Recent Pain Score: Most Recent Pain Score Pain Level 0 06/15/24 10:46 Assessment Mental Status: Awake (Alert & Oriented to Patient Baseline) Airway and Respiratory Function: Patent airway with normal (patient baseline) respiratory exam Cardiovascular Function: Hemodynamically Stable Hydration Status: Adequately Hydrated Nausea & Vomiting: No Nausea or Vomiting Pain: Pain is tolerable per patient Peripheral Nerve Block: Patient did not receive a nerve block Postoperative Comments:: Doing well, calm and states she is comfortable.
[2024-06-15] MEDS: LORazepam 2 MG/ML VIAL 0.5 MG IVP (11:45)
[2024-06-15] MEDS: Normal Saline Flush 10 ML SYR IV ×3 (11:50→15:54)
[2024-06-15] MEDS: fentaNYL 100 MCG/2 ML VIAL IVP ×4 (11:56→13:48)
[2024-06-15] MEDS: Methocarbamol 500 MG TAB 1000 MG PO (13:07)
--- NOTE | 2024-06-15 16:56 | PT.INIE ---
PT Notes Visit Reasons: OA L Hip Physical Therapy Initial Evaluation Date: 06/15/2024 Referring Doctor: MADALYN Braun PT Orders: PT CONSULT: S/P Ortho Surgery Precautions: WBAT on the L LE with AD. Patient Profile/Admitting Diagnosis: Curtis is a 48-year-old female with degenerative joint disease of the left hip and status post left anterior total hip arthroplasty on postoperative day 0. PMHX: Medical History (Updated 12/18/23 @ 11:44 by MADALYN Braun) Tubular adenoma of colon (~09/2023) Arthritis Hyperlipidemia GERD (gastroesophageal reflux disease) History of frequent urinary tract infections Hirsutism Bilateral sciatica Family history of colon cancer in mother Surgical History (Updated 09/29/23 @ 10:36 by Jeannine Jerome) History of colonoscopy (~09/2023) path sentHistory of hysterectomy Social History/Home Situation: Lives with in a private home with 2 steps to enter with a post on one side. Independent with all mobility ADL performance. Works from home. Equipment Owned/DME: None Subjective: Reported 7/10 pain before moving out of bed which crept up to 9/10 right after a short walk. Lightheadedness limited tolerance to upright positioning, needed to sit down twice. Objective: General Observation: Appeared in pain at rest and with movement despite prior pain medication intake. Mental Status: Awake and oriented x 4 Pain: 7/10 a t rest, up to 9/10 right after short walk ROM: Right Lower Extremity: Hip flexion WFL. Hip abduction WFL. Knee flexion WFL. Ankle dorsiflexion WFL. Ankle plantarflexion WFL. Left Lower Extremity: Hip flexion painful past 90. Hip abduction WFL. Knee flexion 30 degrees to 90 degrees. Kneee xtension -30 degrees. Ankle dorsiflexion WFL. Ankle plantarflexion WFL. Strength: Right Lower Extremity: Hip flexors 5/5. Hip abductors 5/5. Knee flexors 5/5. Knee extensors 5/5. Ankle dorsiflexors 5/5. Ankle plantarflexors 5/5. Left Lower Extremity:Hip flexors 3-/5. Hip abductors 4-/5. Knee flexors 4-/5. Knee extensors 3-/5. Ankle dorsiflexors 4-/5. Ankle plantarflexors 4/5. Sensation: Intact as to pain and light pressure in B LE Bed Mobility/Transfers: Moderate cueing provided for use of B hands as needed for support, movement sequence, AD management, and posture to reduce fall risk and minimize pain report Supine to sit minimal assist Sit to stand miniaml assist Stand to sit minimal assist Bed to chair minimal assist Gait: Walked from edge of bed to toilet seat to void urine and then to the sink to wash hands at which time she complained of lightheadedness, became shaky, and requested to sit down. She was again able to walk about 7 steps before she felt the urge to sit down again due to worsening pain and persistent lightheadedness. Balance: Static Sitting: Good Dynamic Sitting: Good Static Standing: Fair Dynamic Standing: Poor Special Tests: Mobility Limitations Standardized Measure [facility] AM-PAC 6 clicks Basic Mobility Inpatient Short Form: Raw Score: 18 CMS Score: 47% deficit Informed Consent/Education: Patient instructed in purpose of PT consult and plan of care. ASSESSMENT: Deferred exercise HEP as patient needed to use bathroom stat but coud not tolerate any more activity due to heigthening pain level. Limited by pain report of 8-9/10in the L hip and thigh with weight bearing. Needed to sit down twice due to lightheadedness after just a few steps on her way to bathroom and from the bathroom. Does not feel safe going home. Deferred any further assessment due to pain level. Patient presents with clinical signs and symptoms consistent with current/admitting diagnoses that have resulted to mobility limitations, gait instability, generalized weakness, and impairment of motor control as demonstrated by the following impairment level findings: 1. Decreased strength to left knee major muscle groups 2. Impaired standing balance 3. Limitation of joint range of motion in left knee Impairments are contributing to the following functional limitations: 1. Inability to safely ambulate without assistive device 2. Increase completion time for mobility ADL performance 3. Increased fall risk Patient is assessed as a 11514 moderate complexity based on the following: History: 48-year-old female with impairment level findings, functional limitations, and past medical history as indicated above Examination: Demonstrable impairment in strength, balance, and mobility level with underlying impairments and functional limitations as documented above Presentation: Evolving Decision Makin moderate complexity Goals: Goals X1 week 1. Supine-Sit independent 2. Sit-Supine independent 3. Sit-Stand independent 4. Stand-Sit independent 5. Bed-Chair independent 6. Chair-Bed independent 7. Independent gait on level surface with use of least restrictive device for at least 300 feet without report of pain nor dyspnea 8. Independent stair negotiation while holding onto bilateral rails for at least 10 steps without report of pain nor dyspnea 9. Independent with home exercise program 10. Good static and dynamic standing balance/tolerance PT PLAN OF CARE: Patient will highly benefit from skilled physical therapy services including functional mobility training, bed mobility/transfer training, gait and balance training, therapeutic exercises, therapeutic activity, caregiver/staff/family education and training 1x/day, 7 days/week x 1 week. Plan of care has been reviewed with the GRID[employer] MACHINE OPERATOR providing the service under Physical Therapy direction. Initiate Physical Therapy intervention for strengthening, bed mobility, transfers, gait, stairs, balance training, use of assistive device. DISCHARGE RECOMMENDATIONS: Home when medically cleared by orthopedic surgeon. Recommend outpatient PT services in order to optimize functional mobility outcomes and facilitate return to independent community ambulation without an assistive device. TREATMENT CODE/TIME: 89834 x 20 minutes for 1 unit, 29198 x 11 minutes for 1 unit (14:58-15:29). Thank you for the opportunity to participate in the care of this patient. Please sign an return this page within 30 days if you agree with the above POC. Thank you! Physician Signature Date [facility] Danitza Perez PT, DPT, CLT [facility] [place], [place]
--- NOTE | 2024-06-15 17:12 | W.PC.ACHO ---
Registration Status: Primary Language: Preferred Language: Medical / Surgical History (Last Reviewed 06/15/24 @ 06:52 by Odalis Farr) Tubular adenoma of colon (~09/2023) Arthritis Hyperlipidemia GERD (gastroesophageal reflux disease) History of frequent urinary tract infections Hirsutism Bilateral sciatica Family history of colon cancer in mother (Last Reviewed 06/15/24 @ 06:52 by Odalis Farr) Hx of hysterectomy History of colonoscopy (~09/2023) History of hysterectomy Most Recent Vital Signs Temperature 36.3 C L 06/15/24 16:59 Temperature Source Tympanic 06/15/24 16:59 Pulse 94 H 06/15/24 16:59 Pulse Rhythm Regular 06/15/24 06:10 Pulse 73 06/15/24 10:46 Respiratory Rate 15 06/15/24 16:59 Respiratory Depth Normal 06/15/24 06:10 Blood Pressure 121/87 06/15/24 16:59 Blood Pressure Mean 116 06/15/24 15:20 Blood Pressure Position Sitting 06/15/24 15:20 Pulse Oximetry 96 06/15/24 16:59 Respiratory End-tidal CO2 36 06/15/24 10:46 Oxygen Delivery Method Room Air 06/15/24 16:59 Oxygen Flow Rate 0 06/15/24 16:59 Pain Level 0 06/15/24 16:59 Comment RN notified 06/15/24 16:32 Allergies oxycodone (From Percocet) Adverse Reaction (Unknown, Verified 06/15/24 06:23) Nausea N\V Active Medications Generic Name Dose Route Start Last Admin Trade Name Freq PRN Reason Stop Dose Admin Acetaminophen 1,000 mg 06/15/24 06:00 06/15/24 06:58 Acetaminophen 500 Mg Tab PO 06/15/24 23:59 1,000 mg PREOP DAWSON Administration Acetaminophen 1,000 mg 06/15/24 07:15 06/15/24 15:42 Acetaminophen 500 Mg Tab PO 07/15/24 07:14 1,000 mg TID PRN PRN Administration Analgesia Celecoxib 400 mg 06/15/24 06:00 06/15/24 06:59 Celecoxib 200 Mg Cap PO 06/15/24 23:59 400 mg PREOP DAWSON Administration Fentanyl 0 mcg 06/15/24 11:45 06/15/24 13:48 Fentanyl 100 Mcg/2 Ml Vial IVP 07/15/24 11:44 25 mcg DIRECTED DAWSON Administration Hydromorphone HCl 0 mg 06/15/24 07:15 06/15/24 15:41 Hydromorphone 2 Mg Tab PO 07/15/24 07:14 4 mg Q3H PRN PRN Administration Pain Ringer's Solution 1,000 mls @ 80 mls/hr 06/15/24 06:00 06/15/24 15:55 IV 06/15/24 23:59 80 mls/hr INFUSION DAWSON Infusion Cefazolin Sodium/Dextrose 2 gm in 50 mls @ 100 mls/hr 06/15/24 06:00 06/15/24 08:47 Ancef Duplex IVPB 06/15/24 23:59 Infused PREOP DAWSON Infusion Tranexamic Acid/Sodium Chloride 1,000 mg in 100 mls @ 600 mls/hr 06/15/24 06:00 06/15/24 08:57 IVPB 06/15/24 23:59 Infused PREOP DAWSON Infusion Sodium Chloride 0 ml 06/15/24 06:00 06/15/24 15:54 Normal Saline Flush 10 Ml Syr IV 06/15/24 23:59 10 ml PRN PRN Administration IV IV Catheter Type [Right PICC Line Antecubital] IV Catheter Gauge [Right 20 Antecubital] Diet Orders Category Date Time Status Diabetes Consistent CHO [DIET] Nutrition 06/15/24 Lunch Active Faxaf-nk-Dapc Documentation Fingerstick Glucose Start: 06/15/24 06:56 Freq: Status: Complete Protocol: Activity Type Activity Date Activity User E-sign Co-sign Detail Recorded Client Recorded Date Recorded By Document 06/15/24 06:45 BKG DAEMON(5) NVT-BG05 06/15/24 06:56 BKG DAEMON(6) Fingerstick Glucose Start: 06/15/24 16:45 Freq: Status: Active Protocol: Activity Type Activity Date Activity User E-sign Co-sign Detail Recorded Client Recorded Date Recorded By Document 06/15/24 16:43 BKG DAEMON(7) NVT-BG05 06/15/24 16:45 BKG DAEMON(8) Intake and Output - 24 Hour Total 05/02/24 12:06 thru 06/15/24 16:54 Intake Total 1332.000 Output Total 250 Balance 1082.000 Weight 92.9 kg Intake: IV 982.000 Oral 350 Output: Estimated Blood Loss 250 Other: Urine Color Pale Urine Appearance Clear Urine Odor None Emesis Description None Voiding Methods Toilet v v v v v v v v v Sending and/or Receiving Nurses: Please use comment section below to note any information pertinent to the patient hand-off not included above. Information / Comments: Patient received from CCU NURSE Odalis, post op left hip repair. Ag mepilex in placed , clean,dry and intact. Pt is AO x 4. accompanied by . Able to transfer herself to bed w/ minimal assist. All questions answered properly. Report received from:
--- NOTE | 2024-06-15 20:21 | ROE_ITS ---
Date of service: 06/15/24 Time of Service: 08:20 Operative Note Operative Note DATE OF PROCEDURE: 06/15/24 PRE-OP DIAGNOSIS: Left Hip Osteoarthritis POST-OP DIAGNOSIS: same PROCEDURE: Left Anterior Total Hip Arthroplasty with Intraoperative Navigation SURGEON: Andrew Zaidi [employer]SEMBLY WORKER: Paddy Padilla ANESTHESIA TYPE: Spinal Refer to Anesthesia Record ESTIMATED BLOOD LOSS: 250 PATHOLOGY: none sent TOURNIQUET TIME: 0 COMPLICATIONS: None Patient was transported to: PACU Patient's condition: stable Implants: 1. Depuy [place] Acetabular Component, 50mm 2. Depuy Acetabular Liner, [id number] 3. Depuy Actis Standard Collared Femoral Stem, Size 5 4. Depuy Altrx Ceramic Femoral Head, Size 32+1mm Indications: I have seen Radha in clinic for symptoms of hip arthritis, confirmed with radiographic findings. She has exhausted nonoperative methods and was having significant limitations in daily function and desired better function and less pain. I discussed the technical details of a hip replacement. I explained the risks of the procedure to include, but not limited to, bleeding, infection, pain, stiffness, fracture, damage to nerves and vessels, damage to muscles and tendons, loosening, instability, leg length inequality, need for repeat proced ure, blood clot and cardiopulmonary demise. Despite these risks, Radha elected to proceed. Findings: There was significant signs of arthritis throughout the hip along with synovitis and adhesions between the capsule and surrounding muscle. There was also a loose anchor within the hip joint. Procedure Description: Radha was greeted in the preoperative holding area where the correct side was identified and marked. The consent was reviewed with the patient and signed. The history and physical was updated. All questions were answered. She was taken back to the operating room. A spinal anesthestic was then administered. The feet were wrapped with cast padding and Coban and then placed into the boot liners and then into the boots. Care was taken to protect the skin and make sure the heels were fully down and the boots were stable. The patient was then positioned onto the HANA table. Both legs were held in a neutral position. SCDs were applied. The patient was then slid down onto a peroneal post. Prophylactic antibiotics in the form of Cefazolin were administered. 1g of Tranxemic Acid was given intravenously within 30 minutes of incision. The left leg was then prepped with Chloraprep and draped in a standard fashion. A second prep with Chloraprep was performed prior to pl acement of a shower-curtain type drape with Iodine impregnated skin protection. A timeout to confirm correct identity, side and site, procedure, allergies, anesthesia, and medical concerns was performed. An obliquely oriented incision was made starting lateral to the ASIS and running distal over the Tensor Fascia Alejandra (TFL) muscle belly toward the fibular head, approximately 10cm. The skin and soft tissue was dissected sharply, through Vj?s fascia, and to the fascia of the TFL. With the fascia and superior border of the IT band identified, the fascia was incised with a new knife just a venancio any perforators from the IT band. The TFL muscle belly was bluntly dissected away from the fascia and moved laterally. The fat between TFL and rectus was identified to ensure the dissection was not within the TFL. Blunt dissection created space between abductors and the capsule and retractor was placed over the lateral femoral neck. The fibers of the rectus femoris tendon were identified and these were freed from the anterior capsule. A second cobra retractor was placed around the medial femoral neck. The TFL was further retracted laterally to show the deep fascia. Careful dissection through this layer identified three main crossing vessels of the lateral femoral circumflex. These were cauterized in multiple locations and then cut without any noticeable bleeding. The TFL was further released bluntly from the deep fascia to expose anterior hip capsule and fat There were some adhesions between the surrounding muscle and the hip capsule. The Angel orthopaedic retractor was then placed beneath the TFL and against sartorius and medial soft tissues to protect and retract the soft tissues. A T-capsulotomy was then performed starting at the superior lateral acetabulum and moving distally to the intertrochanteric ridge. These capsular flaps were tagged with a No. 1 Ethibond and elevated from within. The capsular flaps were released to the shoulder of the lateral neck and to the lesser trochanter to give excellent visualization of the proximal femur. There was a loose anchor seen in the hip joint which was removed. A neck osteotomy was performed using an oscillating saw based on preoperative templates. This cut started in the shoulder and of the lateral neck and exited medially. The saw was at all times directed medially to avoid injury to the greater trochanter. Gross traction was applied to the leg and the osteotomy opened. The femoral head was removed with a corkscrew, making sure to protect the TFL on its exit. Traction was released after head removal. This was measured on the back table to determine the starting reamer size. Portions of the rectus obscuring visualization were minimally elevated off the superior acetabulum. An anterior retractor was placed over the anterior wall between capsule and labrum and attached to the Gripper retraction system. The femur was rotated to 90 degrees and medial capsule was fully released until the lesser trochanter was palpable and visible; the femur was returned to 30 degrees. A posterior retractor was placed similarly between capsule and labrum. This provided excellent visualization. The contents of the cotyloid fossa were removed with electrocautery and the labrum was removed with a knife. There was a notable floor osteophyte. There was significant chondromalacia of the superior acetabulum. Acetabular reaming began with a 44mm reamer. This first reaming was directed anterior to posterior and medial to get down to the true floor. This was inspected and reamed until the true floor was reached. The anterior retractor was then released and entry and exit was provided by traction on the capsular flaps. I then reamed sequentially up to a 50mm reamer where good fit was obt ained. The larger reamers were oriented based on anatomical reference of the anterior and lateral bright to ensure proper abduction and anteversion. Positioning and size was confirmed with the fluoroscopy. A 50mm Depuy [place] acetabular component was selected. The acetabulum was reamed around the periphery with the selected acetabular size to prevent a rim fit. The deep tissues were irrigated. The acetabular component was then impacted in a position of about 40-45 degrees of abduction and 15-20 degrees of anteversion, using the patient?s anatomy as the ultimate landmark. Fluoroscopy was used to confirm this. There was excellent mechanical handyman of the acetabular component and the inserting handle was removed. The acetabular liner, Depuy [id number] polyethylene liner, was inserted and lined u p with the tines of the acetabular component. There was no soft tissue interposition. The liner was then impacted into position and confirmed to be well-seated. A portion of the naheed-articular cocktail was then injected around the acetabulum into the capsule and periosteum. This cocktail consisted of 123mg of Ropivacaine, 0.25mg of Epinephrine, 0.04mg of Clonidine, and 15mg of Ketorolac, diluted to 50cc. The leg was rotated to 120 degrees. Any remaining medial capsule was released until the lesser trochanter was easily palpable. A retractor was placed medially. The lateral capsule was further released into the shoulder to allow access to the greater trochanter. A Reese retractor was placed over the greater trochanter which allowed the trochanter to flip in front of the capsule for excellent exposure. The leg was brought down into maximal extension and 20 degrees of adduction while ensuring there was no impingement on the acetabulum. Any remnant capsule within the trochanter was released. Piriformis and obturator externis were identified and protected. There was excellent access to the proximal femur. The lateral neck remnant was removed with a rongeur. A blunt canal probe was used to identify the canal and trajectory for later broaching. A box osteotome initiated the broach course. A small curved rasp and a curved curette were used to work laterally. Broaching then began with a starter Actis broach. This was inserted manually around the trochanter and into the canal before mallet blows. The broach was seated to a few millimeters below the cut level based on the neck cut and the preoperative template. Sequential broaching was continued with the Jellise pneumatic broaching device until a tight fit was obtained with good rotational control of the femur. A trial standard neck was inserted along with a +1 trial head. The leg was brought out of extension and adduction and then reduced with traction and internal rotation. The leg was stable anteriorly in a position of 30 degrees of extension and 90 degrees of external rotation. Fluoroscopy was used to ensure there was no fracture and the stem was seated well. Leg lengths were checked with an AP pelvis and pelvic reference points. 248 SolidState navigation system was used to confirm appropriate positioning and leg length and offset. Once content with the desired offset and leg lengths, the leg was brought back into extension, external rotation and adduction. The periosteum and surrounding tissue was injected with remaining portion of the naheed-articular cocktail. The proximal femur was irrigated as well as the deep tissues. The [employer] standard collared stem, size 5, was then manually inserted into the proximal femur making sure to control rotation. It was then malleted into position with light blows, giving breaks to allow bone expansion and decrease risk of fracture. The selected Depuy Altrx Ceramic Head, size 32+1mm, was then placed onto the clean and dry trunnion and secured with impaction onto the tapered fit. The leg was brought back out of extension and adduction and reduced with traction and internal rotation. Stability was confirmed with no shuck at 90 degrees of external rotation and 30 degrees of extension. No impingement through range of motion arc. Final x-ray images were obtained with fluoroscopy to confirm adequate positioning and no intraoperative fracture. The deep tissues were thoroughly irrigated with Surgiphor, betadine solution. This was allowed to sit in the wound for 3 minutes before being thoroughly irrigated out with normal saline. The capsule was then reapproximated with the previously placed Ethibond sutures. The TFL fascia was finally closed with a No. 2 Stratafix, barbed suture. Deep tissues were then reapproximated with 0 Vicryl and a running 2-0 Vicryl. The skin was closed with a running 4-0 Monocryl in a subcuticular fashion. This was reinforced with skin glue. A Mepilex silver dressing was applied. At the end of the case, all counts were correct. Radha was transferred to the hospital bed without difficulty and suffering no apparent complication. She has a good prognosis. Physical therapy will start today and without restrictions, weight-bearing as tolerated. Aspirin 81mg BID will be used for DVT prophylaxis.
[2024-06-15] MEDS: Aspirin E.C. 81 MG TABEC PO (20:53)
[2024-06-15] MEDS: Celecoxib 200 MG CAP PO (20:54)
[2024-06-15] MEDS: Gabapentin 300 MG CAP PO (20:54)
[2024-06-16 03:09] VITALS: PULSE 98; RESP 14; TEMP 36.5; O2SAT 92
[2024-06-16 03:35] VITALS: BP 149/100; PULSE 104; RESP 20; O2SAT 98
--- NOTE | 2024-06-16 03:45 | DI.RAD_ITS ---
Exam(s) XR PORTABLE CHEST AP EXAM: XR PORTABLE CHEST AP CLINICAL HISTORY: SOB, crackles in bases. TECHNIQUE: 2D digital imaging was performed. COMPARISON: No exams were available for comparison FINDINGS: Single AP portable view. Heart size is upper normal. The mediastinum is not widened. Lungs are clear. No infiltrates nor obvious pleural effusions. IMPRESSION: No acute pulmonary findings on this single AP portable view of the chest. DATA REPOSITORY: RADIATION DOSE DELIVERED:
--- NOTE | 2024-06-16 03:45 | RT.EKG_ITS ---
APPROVED REPORT Exam: Resting ECG Reason for Exam: SOB, chest tightness Patient Location: I HR:98 bpm ECG Measurements Heart Rate 98 AXIS ID 171 P 37 QRSd 78 QRS 0 QT 340 T -9 QTc 435 Conclusion Sinus rhythm...normal P axis, V-rate 50- 99 Probable left atrial enlargement...P >50mS, <-0.10mV V1 Low voltage, precordial leads...precordial leads <1.0mV Borderline T abnormalities, diffuse leads...T flat/neg
[2024-06-16] MEDS: LORazepam 2 MG/ML VIAL 0.5 MG IVP (04:06)
[2024-06-16] MEDS: Normal Saline Flush 10 ML SYR IV (04:09)
[2024-06-16 04:28] VITALS: BP 130/85; PULSE 96; RESP 16; TEMP 36.3; O2SAT 94
--- NOTE | 2024-06-16 04:31 | DI.VRAD_ITS ---
PROCEDURE INFORMATION: Exam: XR Chest Exam date and time: 06/16/2024 4:16 AM Age: 48 years old Clinical indication: Shortness of breath and other: SOB, crackles in bases TECHNIQUE: Imaging protocol: Radiologic exam of the chest. Views: 1 view. COMPARISON: No relevant prior studies available. FINDINGS: Lungs: No pulmonary consolidation is seen. Pleural spaces: No pleural effusion or pneumothorax is demonstrated. Heart/Mediastinum: The heart appears normal in size. Bones/joints: The visualized bony structures appear grossly intact. IMPRESSION: No active disease is seen in the chest. Dictated and Authenticated by: Vinnie Cardona MD. Ordering:JOSELYN Dubon MD
--- NOTE | 2024-06-16 07:41 | PTTR_ITS ---
PT Notes Visit Reasons: OA L Hip Physical Therapy Treatment Note Date: 06/16/2024 Precautions: WBAT on the L LE with AD. Subjective: Reported 4-5/10 pain in L hip that did not get worse with weight bearing. Feels safe to go home today if cleared by surgeon. Objective: General Observation: Appeared in pain at rest and with movement despite prior pain medication intake. Mental Status: Awake and oriented x 4 Pain: 4-5/10 in the L hip at rest and with movement Bed Mobility/Transfers: Moderate cueing provided for use of B hands as needed for support, movement sequence, AD management, and posture to reduce fall risk and minimize pain report Sit to stand stand by assist with FWW Stand to sit stand by assist with FWW Bed to chair stand by assist with FWW Gait: 50 feet + 75 feet + 50 feet using front-wheeled walker with stand by assist and minimal verbal cueing for safe and correct gait pattern, AD management, and movement sequence. In the second session patient walked about 50 feet + 50 feet without undue pain with stand by assist. Stairs: Guided patient with safe and correct negotiation of 3 x4-inch steps and 2 x 6- inch steps while holding onto B rails for support with step-to gait pattern with minimal verbal cueing for movement sequence and posture. Stand by assist provided. Balance: Static Sitting: Good Dynamic Sitting: Good Static Standing: Fair Dynamic Standing: Fair THERA EX: Trained patient with correct performance of exercises below to maximize motor control, joint flexibility, soft tissue extensibility of the [] hip musculature to facilitate return to independent functional mobility performance. Access Code: [email or web address] URL: [email or web address] Date: 06/16/2024 Prepared by: Danitza Perez Exercises - Gluteal Sets - 1 x daily - 7 x weekly - 1 sets - 10 reps - 5 hold - Supine Heel Slide - 1 x daily - 7 x weekly - 1 sets - 10 reps - 5 hold - Supine Ankle Pumps - 1 x daily - 7 x weekly - 1 sets - 10 reps - 5 hold - Seated March - 1 x daily - 7 x weekly - 1 sets - 10 reps - 5 hold - Seated Long Arc Quad - 1 x daily - 7 x weekly - 1 sets - 10 reps - 5 hold ASSESSMENT: Tolerated today's walking and stair negotiation as well as HEP education training without report of lightheadedness nor severe pain. Good safety awareness. PT PLAN OF CARE: Patient will highly benefit from skilled physical therapy services including functional mobility training, bed mobility/transfer training, gait and balance training, therapeutic exercises, therapeutic activity, caregiver/staff/family education and training 1x/day, 7 days/week x 1 week. Plan of care has been reviewed with the [employer] providing the service under Physical Therapy direction. Initiate Physical Therapy intervention for strengthening, bed mobility, transfers, gait, stairs, balance training, use of assistive device. DISCHARGE RECOMMENDATIONS: Home when medically cleared by orthopedic surgeon. Recommend outpatient PT services in order to optimize functional mobility outcomes and facilitate return to independent community ambulation without an assistive device. TREATMENT CODE/TIME: Session 1--66931 x 34 minutes for 2 units (07:41-08:15). Session 2--67200 x 20 minutes for 1 unit, 94021 x 16 minutes for 1 unit (11:01-11:37).
[2024-06-16] MEDS: hydroCHLOROthiazide 25 MG TAB 50 MG PO (09:05)
[2024-06-16] MEDS: Aspirin E.C. 81 MG TABEC PO (09:05)
[2024-06-16] MEDS: Celecoxib 200 MG CAP PO (09:05)
[2024-06-16] MEDS: Rosuvastatin 10 MG TAB PO (09:05)
[2024-06-16] MEDS: Metoprolol CR 100 MG TABCR PO (09:05)
[2024-06-16] MEDS: Acetaminophen 500 MG TAB 1000 MG PO (09:05)
[2024-06-16] MEDS: Dexamethasone 4 MG TAB PO (09:05)
[2024-06-16] MEDS: Lisinopril 10 MG TAB PO (09:05)
[2024-06-16] MEDS: Pantoprazole 40 MG TABCR PO (09:05)
[2024-06-16 09:08] VITALS: BP 125/80; PULSE 83; RESP 18; TEMP 36.5; O2SAT 98
--- NOTE | 2024-06-16 10:01 | DSE_ITS ---
Date of service: 06/16/24 Time of Service: 10:02 DS: Diagnosis Discharge Diagnosis (1) Osteoarthritis of left hip: Status: Acute Discharge Plan Disposition Patient Disposition: Home Condition: Good Discharge Details Reason For Visit: OA L Hip Admit Date/Time: 06/15/24 07:16 Admit Provider: Andrew Zaidi Attending Provider: Andrew Zaidi Primary Care Provider: Laurie Banks Hospital Course Hospital Course: Patient was admitted to the medical/surgical floor following the procedure. The surgery was tolerated well without any notable medical, surgical, or anesthetic complications; however, she had notable pain and difficulty mobilizing. Mobilization began postoperatively. It was limited due to pain. She approved overnight but did have an episode of chest tightness and difficulty breathing which improved with Valium. She was voiding spontaneously. Vitals were stable. Physical therapy worked with the patient and mobilization improved. She was cleared for discharge home. No acute medical issues except for some lightheadedness likely from medications with stable vitals. Pain was controlled on oral regimen. Home Meds and New Rx's Prescriptions: New acetaminophen 500 mg tablet 1,000 mg PO TID Qty: 90 3RF aspirin 81 mg tablet,delayed release (DR/EC) 81 mg PO BID Qty: 60 0RF celecoxib 200 mg capsule 200 mg PO BID Qty: 60 0RF hydromorphone 2 mg tablet 1 - 2 mg PO Q4H PRN (Reason: pain) Qty: 20 0RF pantoprazole 40 mg tablet,delayed release (DR/EC) 40 mg PO DAILY Qty: 30 0RF dexamethasone 4 mg tablet 4 mg PO DAILY Qty: 2 0RF diazepam 5 mg tablet 5 mg PO TID PRNQty: 20 0RF naloxone [Narcan] 4 mg/actuation spray,non-aerosol 4 mg intranasal Q2M PRNQty: 2 0RF Rx Instructions: spray 1 dose into ONE nostril; alternate nostrils w each dose until help arrives Continued losartan 25 mg tablet 25 mg PO DAILY metoprolol succinate 100 mg tablet extended release 24 hr 100 mg PO DAILY rosuvastatin 10 mg tablet 10 mg PO DAILY pantoprazole 40 mg tablet,delayed release (DR/EC) 40 mg PO DAILY hydrochlorothiazide 25 mg tablet 50 mg PO DAILY ketoconazole 2 % shampoo 1 applic topical ONCE PRN Ozempic 0.25 mg or 0.5 mg (2 mg/3 mL) pen injector 2 mg subcut QWEEK estradiol 0.1 mg/24 hr patch semiweekly 1 patch transdermal ONCE Patient Comments: weekly applied; in place L anterior abdomen lisinopril 10 mg tablet 10 mg PO DAILY Discontinued meloxicam 7.5 mg tablet 7.5 mg PO DAILY Patient Comments: TAKE 1 TABLET BY MOUTH ONCE DAILY Discharge Instructions Additional Instructions: Total Hip Discharge Instructions Activity: The most important activity is to walk. You should try to take short walks a few times a day. You have no restrictions on movement or positioning, but do not try to force what you do. You will find some stiffness and weakness with hip flexion (lifting your knee). Do not try to strengthen this too early, continue to practice walking and stairs and this will come. - Outpatient physical therapy can be helpful to help return you to a normal gait and improve your flexibility and strength. This can start around 2 weeks. For some patients, it?s not necessary. Usually this is determined at the time of discharge or at the first post-operative visit. - You should wear the TREMAYNE hose on both legs for 2 weeks. Dressing: Keep the surgical dressing in place for at least one week. After the first week it may be removed and replace with light gauze and tape or nothing. It may get wet after 3 days but avoid soaking the dressing. If it gets wet, just lightly pat dry. It is important to always keep some gauze between skin folds, especially when you are sitting. Spend some time with the wound exposed when you are lying flat as the incision does wrinkle onto itself. Medications: - You should take Tylenol and an anti-inflammatory Celebrex as your primary pain control medications. If the Celebrex is too expensive or not covered, please call the office for another alternative (Advil/Ibuprofen or Naproxen/Aleve). - You have been prescribed a stronger pain medication hydromorphone for breakthrough pain, take as needed as prescribed. - You have also been prescribed a stomach acid reduction agent Pantoprozole to help reduce stomach acid and reflux. - You have also been prescribed Decadron to help with post-operative nausea and pain. You will take this for two days starting tomorrow. - You will be taking Aspirin 81mg twice a day for DVT prevention unless instructed otherwise. - You also have been prescribed Diazepam for muscle spasm, anxiety, and pain. Avoid taking this medication at the same time as any Hydromorphone. - If you have constipation you should take Colace or Miralax (both over-the-co unter). It takes most people 3-4 days to have a bowel movement. Follow-up: 2 weeks If you have any acute concerns or questions, please do not hesitate to contact the office at [phone]. You may contact Dr. Zaidi with any questions after hours through the hospital at [phone] or on his cell phone at [phone]. Activity:: Activity as Tolerated Equipment/Supplies:: Walker Diet:: As Tolerated Discharge Orders Discharge Orders: Discharge Order (Routine); Ordered 06/16/24 Ordered By: Andrew Zaidi DS: Summary Time Spent with Patient providing and/or coordinating discharge services: Greater than 30 minutes Status at Discharge Functional status at discharge: uses cane/walker Overall status at discharge: patient is progressing back to baseline Mental Status: mental status grossly normal Speech and Movement: speech and movement normal Mood: congruent mood Affect: normal affect Quality:SDOH Health Related Social Needs: No Data to Display Exam Narrative Exam Narrative: Sitting up in the chair. NAD. AAOx3. LLE dressing c/d/i. No significant swelling. No ecchymosis. Pain to palpation about the proximal thigh muscles. Mildly decreased sensation anteromedial and anteriorly although still intact. SILT DP/SP/Tib. +ADF/APF/EHL/FHL with 5/5 strength. She is reluctant to activate her quadriceps but I am able to have her extend the knee with clear activation against the quad, at least 4/5. No hip or groin pain with IR/ER of the hip. Psych Mental Status: mental status grossly normal Speech and Movement: speech and movement normal Mood: congruent mood Affect: normal affect DS: Data Vitals/I&O Vitals and I&O: Vital Signs Temperature 36.5 C 06/16/24 09:08 Temperature Source Temporal Artery Scan 06/16/24 09:08 Pulse 83 06/16/24 09:08 Pulse Rhythm Regular 06/15/24 06:10 Pulse 73 06/15/24 10:46 Respiratory Rate 18 06/16/24 09:08 Respiratory Depth Normal 10/09/24 06:10 Blood Pressure 125/80 06/16/24 09:08 Blood Pressure Mean 116 06/15/24 15:20 Blood Pressure Position Sitting 06/15/24 15:20 Pulse Oximetry 98 06/16/24 09:08 Respiratory End-tidal CO2 36 06/15/24 10:46 Oxygen Delivery Method Room Air 06/16/24 09:08 Oxygen Flow Rate 0 06/16/24 09:08 Pain Level 5 06/16/24 09:08 Comment MAP:100 06/16/24 04:28 Intake & Output 06/15/24 06/15/24 06/16/24 11:59 23:59 11:59 Intake Total 742.000 / 1448.000 706 / 1448.000 Output Total 250 / 250 Balance 492.000 / 1198.000 706 / 1198.000 Weight 92.9 kg Intake: IV 742.000 / 1098.000 356 / 1098.000 Oral 350 / 350 Output: Estimated Blood Loss 250 / 250 Other: Urine Color Pale Yellow Urine Appearance Clear Clear Urine Odor None None Comment pT voided and walked to the bathroom. Emesis Description None None Voiding Methods Toilet Bedside Commode PFSH All Active Problems Osteoarthritis of left hip (Acute) POCUS injection: 12/18/2023 Diabetes (Chronic) Obesity (Chronic) Hypertension (Chronic) Medical History Tubular adenoma of colon (~09/2023) Arthritis Hyperlipidemia GERD (gastroesophageal reflux disease) History of frequent urinary tract infections Hirsutism Bilateral sciatica Family history of colon cancer in mother Surgical History Hx of hysterectomy History of colonoscopy (~09/2023) path sent History of hysterectomy Social History Smoking/Tobacco Use Status: Never Smoking risk assessment performed?: Yes Alcohol Intake: never Substance use type: does not use Housing: house Additional Social history: [facility] Time Spent with Patient Time Spent with Patient: 45-69 minutes Time was spent: preparing to see the patient(eg.review tests), obtaining and/or reviewing separately otained hiistory, ordering medications,tests, procedures, indepentently interpreting results and counseling the patient
[2024-06-16 11:29] VITALS: BP 112/82; PULSE 90; RESP 18; TEMP 36.4; O2SAT 98
[2024-06-16] MEDS: HYDROmorphone 2 MG TAB PO (12:08)
--- NOTE | 2024-06-16 12:55 | PHA.REVIEW2 ---
Pharmacy Admission Review Admission Clinical Review Admission Pharmacy Review: oxycodone (From Percocet) Adverse Reaction (Unknown, Verified 06/15/24 06:23) Nausea Resuscitation Status Full Code Height 5 ft 5 in Weight 92.9 kg Pharmacy Admission Review Renal Dosing Medications needing adjustments: Reviewed (CrCl 86.11 mL/min) List of meds needing interventions: Current medications are okay Anticoagulation DVT Prophylaxis: Reviewed (SCDs/TEDs - POD#1) Opiate Usage Evaluate Pain Scale/Pains Meds: Reviewed (hydromorphone PO PRN - 6 doses given) Scheduled Bowel Reg ordered if on Opiates?: No (PRN docusate/Miralax) Relevant Labs Electrolytes, C-Reactive P, ESR: Reviewed (No labs for patient) DM Control DM Control: Finger Stick Blood Glucose 238 1204 Finger Stick Blood Glucose 238 1128 Finger Stick Blood Glucose 238 1128 Finger Stick Blood Glucose 144 1013 Finger Stick Blood Glucose 144 0910 Finger Stick Blood Glucose 144 0910 DM Control: Reviewed Insulin Dosing, Diabetic Medication: Has order for SS insulin Cardiac Review BP, HR, EF%: Reviewed (BP and HR WNL) List meds needing interventions: Has order for HCTZ 50mg daily and lisinopril 10mg daily QTc Review QTc: Reviewed (435 from 06/16/24) IV to PO Switch IV Medications: Reviewed (lorazepam and ondansetron) Home Meds Home Med List reviewed: Reviewed Relevent Home Meds Not ordered & why?: ketoconazole shampoo, losartan (says not taking / changed by provider on home med list) Orders for patients estradiol patch and Ozempic are pending - once weekly meds, need to know what day of the week patient uses Current Meds Current Medication Order Review: Intervened Comments: Added IV admission order set
--- NOTE | 2024-06-16 14:11 | CHAPLAIN ---
Radha was wrapped up in blankets in the recliner. She opened her eyes when I spoke to her. She told me that she's been praying. He had a family member or friend in the room with her. I explained my role and offered support. Radha wasn't interested in further conversation.
== END 2024-06-16 14:05 | disposition home or self-care (01) ==
LOC: SUR 07:21 → MS 16:31
PROVIDERS: Admitting Provider Student in an Organized Health Care Education/Training Program; PCP Nurse Practitioner Family; Visit Provider Student in an Organized Health Care Education/Training Program
PROC: (CPT 27130; principal; 2024-06-15 07:30)
DX: M16.12 Unilateral primary osteoarthritis, left hip (principal); E11.9 Type 2 diabetes mellitus without complications; Z79.85 Long-term (current) use of injectable non-insulin antidiabetic drugs; E66.9 Obesity, unspecified; I10 Essential (primary) hypertension; E78.5 Hyperlipidemia, unspecified; K21.9 Gastro-esophageal reflux disease without esophagitis; Z80.0 Family history of malignant neoplasm of digestive organs; L68.0 Hirsutism; M54.32 Sciatica, left side; M54.31 Sciatica, right side
CPT/HCPCS: 27130; 20985; 97110; 97162; 97530; 71045; 73501; 73502; 93005; 93010; C1776; G0378; J0690; J1100; J1815; J2003; J2060; J2250; J2401; J2405; J2704; J3010; J8540

== ENCOUNTER 2024-06-30 11:39 | Outpatient (CLI) | payer OTHER, SELFPAY ==
--- NOTE | 2024-06-30 10:30 | DI.RAD_ITS ---
Exam(s) XR HIP LT COMPLETE AP PELVIS EXAM: XR HIP LT COMPLETE AP PELVIS CLINICAL HISTORY: 1st post op S/P L TYRON. TECHNIQUE: 2D digital imaging was performed. Two images were obtained. AP pelvis and lateral left h ip views were obtained. COMPARISON: CR XR HIP LT AP LAT ONLY from 06/15/2024 FINDINGS: BONES: There are stable post operative changes of a left total hip replacement present. No fracture or dislocation. JOINTS: The orthopedic hardware is in good position. No evidence of hardware loosening. SOFT TISSUE: Normal. IMPRESSION: Stable left total hip arthroplasty. DATA REPOSITORY: RADIATION DOSE DELIVERED:
== END 2024-06-30 11:40 | disposition home or self-care (01) ==
LOC: DIORS 11:40
PROVIDERS: PCP Nurse Practitioner Family; Visit Provider Student in an Organized Health Care Education/Training Program
DX: Z96.642 Presence of left artificial hip joint (principal); Z47.1 Aftercare following joint replacement surgery
CPT/HCPCS: 73502

== ENCOUNTER 2025-04-10 15:22 | Outpatient (REF) | payer OTHER, SELFPAY ==
[2025-04-10 16:20] LABS: Hemoglobin A1C 5.8 % (<5.7)
[2025-04-10 16:51] LABS: ALT 36 U/L (14-59); AST 24 U/L (15-37); Albumin 3.7 g/dL (3.4-5.0); Alkaline Phosphatase 87 U/L (46-116); Anion Gap 8.1 mmol/L (3-11); BUN 17 mg/dL (7-18); Bilirubin, Total 0.4 mg/dL (0.2-1.0); CO2 30.9 mmol/L (21.0-32.0); Calcium 8.9 mg/dL (8.5-10.1); Calculated LDL 41 mg/dL (<100); Chloride 102 mmol/L (98-107); Cholesterol 112 mg/dL (<200); Estimated GFR 69.06 (mL/min/1.73m2); Glucose 93 mg/dL (74-106); HDL Cholesterol 43 mg/dL (>or=50); Potassium 3.5 mmol/L (3.5-5.1); Sodium 141 mmol/L (136-145); Total Protein 6.7 g/dL (6.4-8.2); Triglyceride 140 mg/dL (<150)
[2025-04-10 17:18] LABS: COMMENT (LAB VIEW ONLY) 241.05 mg/dL; Microalb ug/mg Crea 6.1 ug/mg Cr
== END 2025-04-10 15:23 | disposition home or self-care (01) ==
LOC: NCHCN 15:22
PROVIDERS: PCP Nurse Practitioner Family; Visit Provider Physician Assistant
DX: E11.9 Type 2 diabetes mellitus without complications (principal)
CPT/HCPCS: 80053; 80061; 82043; 82570; 83036

== ENCOUNTER 2025-06-19 09:53 | Outpatient (CLI) | payer OTHER, SELFPAY ==
--- NOTE | 2025-06-19 07:45 | DI.RAD_ITS ---
Exam(s) XR HIP LT AP LAT ONLY EXAM: XR HIP LT AP LAT ONLY INDICATION: ANNUAL F/U L TYRON. COMPARISON: CR XR HIP LT COMPLETE AP PELVIS from 06/30/2024 TECHNIQUE: 2D digital imaging was performed. Two views. FINDINGS: Stable alignment left hip prosthesis. No abnormal surrounding bony lucencies. DATA REPOSITORY: RADIATION DOSE DELIVERED:
== END 2025-06-19 09:54 | disposition home or self-care (01) ==
LOC: DIORS 09:53
PROVIDERS: PCP Nurse Practitioner Family; Visit Provider Physician Assistant
DX: Z96.642 Presence of left artificial hip joint (principal)
CPT/HCPCS: 73502